=== PATIENT | male | born 1940 | race Caucasian/White ===

== ENCOUNTER 2021-04-15 20:45 | Inpatient (IN) | payer MEDICARE, OTHER ==
[~2021-04-15] VITALS: Ht 188 cm; Wt 108.5 kg
[2021-04-15] MEDS ORDERED: morphine INJ 10 MG/ML 1ML (SYR OR VIAL) IVP PRN (21:15)
[2021-04-15] MEDS ORDERED: HYDROcodone/APAP 5 MG/325 MG (LORTAB) TAB PO PRN (21:15)
[2021-04-15] MEDS ORDERED: LOPERAMIDE 2 MG (IMODIUM) TABLET PO PRN (21:15)
[2021-04-15] MEDS ORDERED: ONDANSETRON 4 MG/2 ML (SDV) Z0FRAN IVP PRN (21:15)
[2021-04-15] MEDS ORDERED: ALPRAZolam 0.25 MG (XANAX) TAB PO PRN (21:15)
[2021-04-15] MEDS ORDERED: MELATONIN 3 MG TABLET PO PRN (21:15)
[2021-04-15] MEDS ORDERED: DOCUSATE SODIUM 100 MG (COLACE) CAP PO PRN (21:15)
[2021-04-15] MEDS ORDERED: ONDANSETRON 4 MG (ZOFRAN) ORAL DISSOLVE TAB PO PRN (21:15)
[2021-04-15] MEDS ORDERED: CALCIUM CARBONATE 500 MG (TUMS) TAB.CHEW PO PRN (21:15)
[2021-04-15] MEDS ORDERED: diphenhydrAMINE 25 MG TAB (BENADRYL) PO PRN (21:15)
[2021-04-15] MEDS ORDERED: ACETAMINOPHEN 500 MG TAB (TYLENOL) PO PRN (21:15)
[2021-04-15 23:46] LABS: BASOPHILS # (AUTO) 0.1 10^3/uL (0.0-0.1); BASOPHILS % (AUTO) 1 % (0-10); EOSINOPHILS % (AUTO) 0 % (0-10); HEMATOCRIT 33 % (40-54); HEMOGLOBIN 10.4 g/dL (13.3-17.7); LYMPHOCYTES # (AUTO) 0.5 10^3/uL (1.0-4.0); LYMPHOCYTES % (AUTO) 5 % (12-44); MEAN CORPUSCULAR HEMOGLOBIN 29 pg (25-34); MEAN CORPUSCULAR HGB CONC 31 g/dL (32-36); MEAN CORPUSCULAR VOLUME 92 fL (80-99); MEAN PLATELET VOLUME 10.6 fL (9.0-12.2); MONOCYTES # (AUTO) 0.4 10^3/uL (0.0-1.0); MONOCYTES % (AUTO) 4 % (0-12); NEUTROPHILS # (AUTO) 9.5 10^3/uL (1.8-7.8); NEUTROPHILS % (AUTO) 90 % (42-75); PLATELET COUNT 194 10^3/uL (130-400); WHITE BLOOD COUNT 10.6 10^3/uL (4.3-11.0)
[2021-04-15 23:50] VITALS: BP 119/61
[2021-04-15 23:53] LABS: ALBUMIN 3.8 GM/DL (3.2-4.5); POTASSIUM 4.2 MMOL/L (3.6-5.0)
[2021-04-15 23:55] LABS: TOTAL PROTEIN 7.6 GM/DL (6.4-8.2)
[2021-04-15 23:57] LABS: BILIRUBIN,TOTAL 0.8 MG/DL (0.1-1.0)
[2021-04-15 23:59] LABS: CREATININE SERUM 1.45 MG/DL (0.60-1.30)
[2021-04-16] VITALS (8 sets, daily range): BP systolic 114–168; BP diastolic 72–113
[2021-04-16] MEDS ORDERED: HYDROcodone/APAP 5 MG/325 MG (LORTAB) TAB PO PRN (00:15)
[2021-04-16 00:25] LABS: ATYPICAL LYMPHOCYTES 1 %; BAND NEUTROPHILS 3 %; LYMPHOCYTES % (MANUAL) 5 %; MONOCYTES % (MANUAL) 4 %; NEUTROPHILS % (MANUAL) 87 %
[2021-04-16] MEDS: NS IV 1000 ML 1,000 ML IV SCH ×2 (00:41→08:30)
[2021-04-16] MEDS: PIPERACILLIN/TAZOBACTAM (BULK) 4.5 GM in NS (IVPB) 100 ML IV SCH ×3 (01:51→18:09)
[2021-04-16 05:02] LABS: BASOPHILS % (AUTO) 0 % (0-10); EOSINOPHILS % (AUTO) 0 % (0-10); HEMATOCRIT 31 % (40-54); HEMOGLOBIN 9.7 g/dL (13.3-17.7); LYMPHOCYTES # (AUTO) 0.6 10^3/uL (1.0-4.0); LYMPHOCYTES % (AUTO) 9 % (12-44); MEAN CORPUSCULAR HEMOGLOBIN 29 pg (25-34); MEAN CORPUSCULAR HGB CONC 31 g/dL (32-36); MEAN CORPUSCULAR VOLUME 92 fL (80-99); MEAN PLATELET VOLUME 10.5 fL (9.0-12.2); MONOCYTES # (AUTO) 0.4 10^3/uL (0.0-1.0); MONOCYTES % (AUTO) 6 % (0-12); NEUTROPHILS # (AUTO) 6.3 10^3/uL (1.8-7.8); NEUTROPHILS % (AUTO) 85 % (42-75); PLATELET COUNT 164 10^3/uL (130-400); WHITE BLOOD COUNT 7.5 10^3/uL (4.3-11.0)
[2021-04-16 05:06] LABS: ALBUMIN 3.4 GM/DL (3.2-4.5); POTASSIUM 4.2 MMOL/L (3.6-5.0)
[2021-04-16 05:07] LABS: CALCIUM 8.6 MG/DL (8.5-10.1)
[2021-04-16 05:09] LABS: TOTAL PROTEIN 6.9 GM/DL (6.4-8.2)
[2021-04-16 05:10] LABS: BILIRUBIN,TOTAL 0.7 MG/DL (0.1-1.0)
[2021-04-16 05:12] LABS: CREATININE SERUM 1.42 MG/DL (0.60-1.30)
[2021-04-16] MEDS: inSUlin ASPART (NovoLOG) 1 UNIT/0.01 ML (CHARGE PER UNIT) SC SCH ×3 (05:40→18:09)
[2021-04-16] MEDS ORDERED: inSUlin ASPART (NovoLOG) 1 UNIT/0.01 ML (CHARGE PER UNIT) SC SCH (06:00)
[2021-04-16] MEDS ORDERED: inSUlin (REGULAR) HUMAN 1 UNIT/0.01 ML (CHARGE PER UNIT) SC ONE ×2 (07:00→08:00)
[2021-04-16] MEDS: polyethylene glycoL POWDER 17 GM (MIRALAX) PACK PO SCH ×2 (08:07→22:57)
[2021-04-16] MEDS: SENNA W/DOCUSATE (SENOKOT S) TABLET PO SCH ×2 (08:07→19:26)
[2021-04-16] MEDS ORDERED: ENOXAPARIN 40 MG/0.4 ML (LOVENOX) SYR SC SCH (09:00)
[2021-04-16] MEDS ORDERED: FUROSEMIDE 40 MG/4 ML INJ (LASIX) IVP ONE (10:15)
--- NOTE | 2021-04-16 10:39 | Consultation - Surgery ---
VALERI TAMEZ 04/16/21 1039: History of Present Illness History of Present Illness Patient Consulted On([place]/time) 04/16/21 10:31 Date Seen by Provider: Apr 16, 2021 Time Seen by Provider: 10:31 History of Present Illness Patient was consulted for Dr. Tran for abdominal pain. Patient is an 80 year old male transferred to the hospital for a UTI, pneumonia, and sepsis. Patient is being seen for reported abdominal pain. Patient has had an indwelling suprapubic catheter for over a year. Patient states his abdominal pain is in the RLQ, describes it as a deep ache. Patient also complains of costovertebral angle pain on the back. Patient rates the pain a 2/10 at rest. Much worse with palpation. Patient states that nothing makes his pain better. Eating certain foods can make it worse, he does not recall which. Patient also states that pressure can make his pain worse. His pain has been constant lately and remains localized to the RLQ and his costovertebral pain on the back. Patient did have a UA positive for bacteria at [facility] and blood cultures are positive for Gram (-) rods. Patient is a type 2 diabetic and is currently hyperglycemic, with an elevated alk phos. Allergies and Home Medications Allergies Coded Allergies: naproxen (Verified Allergy, Unknown, 04/15/21) Home Medications Amlodipine Besylate 10 Mg Tablet, 10 MG PO DAILY, (Reported) Last Action: Reviewed Carvedilol 25 Mg Tablet, 25 MG PO BID, (Reported) Last Action: Reviewed Digoxin 125 Mcg Tablet, 125 MCG PO DAILY, (Reported) Last Action: Reviewed Glimepiride 4 Mg Tablet, 4 MG PO DAILY, (Reported) Last Action: Reviewed Hydrocodone/Acetaminophen 1 Each Tablet, 1 EA PO Q8H PRN for PAIN-MODERATE (5- 7), (Reported) Last Action: Reviewed Insulin Aspart 100 Unit/1 Ml Susp, 8 UNITS SC AC, (Reported) Last Action: Reviewed Losartan Potassium 25 Mg Tablet, 25 MG PO HS, (Reported) Last Action: Reviewed Lovastatin 20 Mg Tablet, 20 MG PO HS, (Reported) Last Action: Reviewed Metformin HCl 500 Mg Tab.er.24h, 500 MG PO DAILY, (Reported) Last Action: Reviewed Potassium Chloride 20 Meq Tab.er.prt, 20 MEQ PO DAILY, (Reported) Last Action: Reviewed Rivaroxaban 20 Mg Tablet, 20 MG PO DAILY, (Reported) Last Action: Reviewed Torsemide 100 Mg Tablet, 50 MG PO DAILY, (Reported) LAST FILLED 12-12-2020 #45/90 DAY SUPPLY TAKES OF A 100MG TAB Last Action: Reviewed Past Arelfbf-Fayvuf-Qhgbiv Hx Patient Social History Smoking Status: Former Smoker Alcohol Use?: No Have you traveled recently?: No Surgeries Surgeries: CABG, Tonsillectomy Respiratory Respiratory Disorders: Pneumonia Cardiovascular Cardiac Disorders: Coronary Artery Disease, Heart Attack Genitourinary Genitourinary Disorders: UTI-Chronic Gastrointestinal Gastrointestinal Disorders: Gastroesophageal Reflux Family Medical History Significant Family History: CAD Over 55 Years Old, Diabetes Review of Systems-General Respiratory: dyspnea on exertion, short of breath Gastrointestinal: RLQ, abdominal pain (RLQ) Genitourinary: pain (to pressure over cath), other (indwelling suprapubic catheter) Musculoskeletal: back pain (subcostal pain R side) Physical Exam-General Problems Physical Exam Vital Signs Vital Signs - First Documented 04/15/21 04/15/21 04/16/21 23:38 23:50 07:55 Pulse 94 Resp 17 B/P (MAP) 119/61 (80) Pulse Ox 97 O2 Delivery Nasal Cannula O2 Flow Rate 4.00 FiO2 96 Capillary Refill : General Appearance: WD/WN, mild distress HEENT: PERRL/EOMI Neck: non-tender, supple Respiratory: respiratory distress, decreased breath sounds, accessory muscle use Cardiovascular: normal peripheral pulses, regular rate, rhythm, extra beats Gastrointestinal: soft, tenderness (RLQ) Back: CVA tenderness (R) Extremities: non-tender, no calf tenderness, pedal edema Neurologic/Psychiatric: alert, depressed affect Skin: normal color, warm/dry Data Review Labs Laboratory Tests 04/15/21 23:37: White Blood Count 10.6, Red Blood Count 3.64L, Hemoglobin 10.4L, Hematocrit 33L, Mean Corpuscular Volume 92, Mean Corpuscular Hemoglobin 29, Mean Corpuscular Hemoglobin Concent 31L, Red Cell Distribution Width 14.4, Platelet Count 194, Mean Platelet Volume 10.6, Immature Granulocyte % (Auto) 0, Neutrophils (%) (Auto) 90H, Lymphocytes (%) (Auto) 5L, Monocytes (%) (Auto) 4, Eosinophils (%) (Auto) 0, Basophils (%) (Auto) 1, Neutrophils # (Auto) 9.5H, Lymphocytes # (Auto) 0.5L, Monocytes # (Auto) 0.4, Eosinophils # (Auto) 0.0, Basophils # (Auto) 0.1, Immature Granulocyte # (Auto) 0.0, Neutrophils % (Manual) 87, Lymphocytes % (Manual) 5, Monocytes % (Manual) 4, Band Neutrophils 3, Atypical Lymphocytes 1, Sodium Level 137, Potassium Level 4.2, Chloride Level 104, Carbon Dioxide Level 20L, Anion Gap 13, Blood Urea Nitrogen 18, Creatinine 1.45H, Estimat Glomerular Filtration Rate 47, BUN/Creatinine Ratio 12, Glucose Level 395H, Lactic Acid Level 2.54*H, Calcium Level 9.0, Corrected Calcium 9.2, Total Bilirubin 0.8, Aspartate Amino Transf (AST/SGOT) 21, Alanine Aminotransferase (ALT/SGPT) 19, Alkaline Phosphatase 231H, Total Protein 7.6, Albumin 3.8 04/16/21 01:40: Lactic Acid Level 1.65 04/16/21 04:50: White Blood Count 7.5, Red Blood Count 3.38L, Hemoglobin 9.7L, Hematocrit 31L, Mean Corpuscular Volume 92, Mean Corpuscular Hemoglobin 29, Mean Corpuscular Hemoglobin Concent 31L, Red Cell Distribution Width 14.4, Platelet Count 164, Mean Platelet Volume 10.5, Immature Granulocyte % (Auto) 0, Neutrophils (%) (Auto) 85H, Lymphocytes (%) (Auto) 9L, Monocytes (%) (Auto) 6, Eosinophils (%) (Auto) 0, Basophils (%) (Auto) 0, Neutrophils # (Auto) 6.3, Lymphocytes # (Auto) 0.6L, Monocytes # (Auto) 0.4, Eosinophils # (Auto) 0.0, Basophils # (Auto) 0.0, Immature Granulocyte # (Auto) 0.0, Sodium Level 135, Potassium Level 4.2, Chloride Level 104, Carbon Dioxide Level 20L, Anion Gap 11, Blood Urea Nitrogen 17, Creatinine 1.42H, Estimat Glomerular Filtration Rate 48, BUN/Creatinine Ratio 12, Glucose Level 405*H, Calcium Level 8.6, Corrected Calcium 9.1, Total Bilirubin 0.7, Aspartate Amino Transf (AST/SGOT) 17, Alanine Aminotransferase (ALT/SGPT) 17, Alkaline Phosphatase 198H, Total Protein 6.9, Albumin 3.4 Assessment/Plan Assessment/Plan Assessment/Plan Assessment: UTI Sepsis Pneumonia Hyperglycemia Plan: IV fluids Continue Zosyn - monitor labs Continue to monitor abdominal pain Continue medical management TAMEKA ESQUIVEL DO 04/16/211936: History of Present Illness History of Present Illness History of Present Illness Patient 80-year-old male with UTI pneumonia and sepsis. Patient having some abdominal pain very minimal in the right lower quadrant. Aching type pain. At rest it is a 2 out of 10. Pain also may be moved up to his right flank. Patient has suprapubic catheter. Patient not the best historian. Patient UA was positive for bacteria which grew out gram-negative rods. Allergies and Home Medications Allergies Coded Allergies: naproxen (Verified Allergy, Unknown, 04/15/21) Home Medications Amlodipine Besylate 10 Mg Tablet, 10 MG PO DAILY, (Reported) Last Action: Reviewed Carvedilol 25 Mg Tablet, 25 MG PO BID, (Reported) Last Action: Reviewed Digoxin 125 Mcg Tablet, 125 MCG PO DAILY, (Reported) Last Action: Reviewed Glimepiride 4 Mg Tablet, 4 MG PO DAILY, (Reported) Last Action: Reviewed Hydrocodone/Acetaminophen 1 Each Tablet, 1 EA PO Q8H PRN for PAIN-MODERATE (5- 7), (Reported) Last Action: Reviewed Insulin Aspart 100 Unit/1 Ml Susp, 8 UNITS SC AC, (Reported) Last Action: Reviewed Losartan Potassium 25 Mg Tablet, 25 MG PO HS, (Reported) Last Action: Reviewed Lovastatin 20 Mg Tablet, 20 MG PO HS, (Reported) Last Action: Reviewed Metformin HCl 500 Mg Tab.er.24h, 500 MG PO DAILY, (Reported) Last Action: Reviewed Potassium Chloride 20 Meq Tab.er.prt, 20 MEQ PO DAILY, (Reported) Last Action: Reviewed Rivaroxaban 20 Mg Tablet, 20 MG PO DAILY, (Reported) Last Action: Reviewed Torsemide 100 Mg Tablet, 50 MG PO DAILY, (Reported) LAST FILLED 12-12-2020 #45/90 DAY SUPPLY TAKES OF A 100MG TAB Last Action: Reviewed Patient Home Medication List Home Medication List Reviewed: Yes Past Jxcggxt-Bequao-Tcqgif Hx Reviewed Nursing Assessment Reviewed/Agree w Nursing PMH: Yes Family Medical History Significant Family History: No Pertinent Family Hx Review of Systems-General Respiratory: dyspnea on exertion, short of breath Gastrointestinal: RLQ, abdominal pain (RLQ); No nausea, No vomiting Genitourinary: pain (to pressure over cath), other (indwelling suprapubic catheter) Musculoskeletal: back pain (subcostal pain R side) Skin: No change in color Psychiatric/Neurological: Denies Anxiety, Denies Depressed, Denies Emotional Problems All Other Systems Reviewed Negative Unless Noted: Yes (Negative excepted noted.) Physical Exam-General Problems Physical Exam General Appearance: WD/WN; No mild distress HEENT: PERRL/EOMI, normal ENT inspection Neck: non-tender, supple Respiratory: chest non-tender, no respiratory distress, no accessory muscle use; No respiratory distress, No accessory muscle use Cardiovascular: normal peripheral pulses, regular rate, rhythm, no JVD Gastrointestinal: soft, tenderness (RLQ minimal with deep palpation, suprapubic catheter in place) Back: CVA tenderness (R) Extremities: non-tender, normal inspection Neurologic/Psychiatric: alert, depressed affect Skin: normal color, warm/dry Lymphatic: no adenopathy Assessment/Plan Assessment/Plan Assessment/Plan UTI Right lower quadrant abdominal pain Sepsis Pneumonia Hyperglycemia Abdominal pain likely related to UTI he has indwelling suprapubic catheter. Patient also by x-ray demonstrated to have some colonic dilated loops however I do not feel this is likely causing his pain IV fluids Continue Zosyn - monitor labs Continue to monitor abdominal pain Continue medical management Supervisory-Addendum Brief Verification & Attestation Participated in pt care: history, MDM, physical Personally performed: exam, history, MDM, supervision of care Care discussed with: Medical Student Procedures: n/a Results interpretation: Verified all documentation Verification and Attestation of Medical Student E/M Service A medical student performed and documented this service in my presence. I reviewed and verified all information documented by the medical student and made modifications to such information, when appropriate. I personally performed the physical exam and medical decision making. Tameka Esquivel, Apr 16, 2021,19:37 VALERI TAMEZ Apr 16, 2021 10:39 TAMEKA ESQUIVEL DO Apr 16, 2021 19:37
[2021-04-16] MEDS: RT-ALBUTEROL/IPRATROPIUM 3 ML (DUONEB) VIAL INH SCH ×4 (10:57→21:18)
[2021-04-16] MEDS ORDERED: RT-ALBUTEROL/IPRATROPIUM 3 ML (DUONEB) VIAL INH PRN (12:00)
--- NOTE | 2021-04-16 12:28 | Consultation-Cardiology ---
HPI-Cardiology Cardiology Consultation Date of Consultation 04/16/21 Date of Admission Time Seen by Provider: 08:00 Indication: Coronary artery disease HPI 80 years old gentleman with history of coronary artery disease, paroxysmal atrial fibrillation, permanent pacemaker. Seen in the emergency room for abdominal pain and cramps, diagnosed with UTI and pneumonia, he was transferred for evaluation and management, he denies any chest pain, no palpitation, no syncope or near syncopal episodes. Follows with Dr. Trent Home Medications & Allergies Allergies: Coded Allergies: naproxen (Verified Allergy, Unknown, 04/15/21) Home Medication List Reviewed: Yes YQB-Uyjgog-Eqbozf Hx Patient Social History Smoking Status: Former Smoker Have you traveled recently?: No Alcohol Use?: No Past Medical History Discussed below Family Medical History Significant Family History: CAD Over 55 Years Old, Diabetes Family Medical Hx Noncontributory Review of Systems-General Review of Systems Constitutional: see HPI, malaise, weakness EENTM: see HPI, no symptoms reported Respiratory: dyspnea on exertion, short of breath Cardiovascular: see HPI Gastrointestinal: RLQ, abdominal pain (RLQ) Genitourinary: pain (to pressure over cath), other (indwelling suprapubic catheter) Musculoskeletal: back pain (subcostal pain R side) Skin: no symptoms reported, see HPI Psychiatric/Neurological: No Symptoms Reported, See HPI Reviewed Test Results Reviewed Test Results Lab Laboratory Tests Test 04/15/21 23:37 04/16/21 01:40 04/16/21 04:50 04/16/21 12:12 Range/Units White Blood Count 10.6 7.5 4.3-11.0 10^3/uL Red Blood Count 3.64 L 3.38 L 4.30-5.52 10^6/uL Hemoglobin 10.4 L 9.7 L 13.3-17.7 g/dL Hematocrit 33 L 31 L 40-54 % Mean Corpuscular Volume 92 92 80-99 fL Mean Corpuscular Hemoglobin 29 29 25-34 pg Mean Corpuscular Hemoglobin Concent 31 L 31 L 32-36 g/dL Red Cell Distribution Width 14.4 14.4 10.0-14.5 % Platelet Count 194 164 130-400 10^3/uL Mean Platelet Volume 10.6 10.5 9.0-12.2 fL Immature Granulocyte % (Auto) 0 0 % Neutrophils (%) (Auto) 90 H 85 H 42-75 % Lymphocytes (%) (Auto) 5 L 9 L 12-44 % Monocytes (%) (Auto) 4 6 0-12 % Eosinophils (%) (Auto) 0 0 0-10 % Basophils (%) (Auto) 1 0 0-10 % Neutrophils # (Auto) 9.5 H 6.3 1.8-7.8 10^3/uL Lymphocytes # (Auto) 0.5 L 0.6 L 1.0-4.0 10^3/uL Monocytes # (Auto) 0.4 0.4 0.0-1.0 10^3/uL Eosinophils # (Auto) 0.0 0.0 0.0-0.3 10^3/uL Basophils # (Auto) 0.1 0.0 0.0-0.1 10^3/uL Immature Granulocyte # (Auto) 0.0 0.0 0.0-0.1 10^3/uL Neutrophils % (Manual) 87 % Lymphocytes % (Manual) 5 % Monocytes % (Manual) 4 % Band Neutrophils 3 % Atypical Lymphocytes 1 % Sodium Level 137 135 135-145 MMOL/L Potassium Level 4.2 4.2 3.6-5.0 MMOL/L Chloride Level 104 104 98-107 MMOL/L Carbon Dioxide Level 20 L 20 L 21-32 MMOL/L Anion Gap 13 11 5-14 MMOL/L Blood Urea Nitrogen 18 17 7-18 MG/DL Creatinine 1.45 H 1.42 H 0.60-1.30 MG/DL Estimat Glomerular Filtration Rate 47 48 BUN/Creatinine Ratio 12 12 Glucose Level 395 H 405 *H 70-105 MG/DL Lactic Acid Level 2.54 *H 1.65 0.50-2.00 MMOL/L Calcium Level 9.0 8.6 8.5-10.1 MG/DL Corrected Calcium 9.2 9.1 8.5-10.1 MG/DL Total Bilirubin 0.8 0.7 0.1-1.0 MG/DL Aspartate Amino Transf (AST/SGOT) 21 17 5-34 U/L Alanine Aminotransferase (ALT/SGPT) 19 17 0-55 U/L Alkaline Phosphatase 231 H 198 H 40-136 U/L Total Protein 7.6 6.9 6.4-8.2 GM/DL Albumin 3.8 3.4 3.2-4.5 GM/DL B-Type Natriuretic Peptide 339.1 H <100.0 PG/ML Glucometer 270 H 70-110 MG/DL Physical Exam Physical Exam Vital Signs Vital Signs - First Documented 04/15/21 04/15/21 04/16/21 23:38 23:50 07:55 Pulse 94 Resp 17 B/P (MAP) 119/61 (80) Pulse Ox 97 O2 Delivery Nasal Cannula O2 Flow Rate 4.00 FiO2 96 Capillary Refill : Height, Weight, BMI Height: '" Weight: lbs. oz. kg; 30.69 BMI Method: General Appearance: No Apparent Distress, WD/WN Eyes: Bilateral Eye Normal Inspection, Bilateral Eye PERRL, Bilateral Eye EOMI HEENT: PERRL/EOMI, TMs Normal, Normal ENT Inspection, Pharynx Normal, Moist Mucous Membranes Neck: Full Range of Motion, Normal Inspection, Non Tender, Supple, Carotid Bruit Respiratory: Chest Non Tender, Normal Breath Sounds, No Accessory Muscle Use, No Respiratory Distress Cardiovascular: No Edema, No Gallop, No JVD, Normal Peripheral Pulses, Systolic Murmur, Irregularly Irregular Gastrointestinal: Normal Bowel Sounds, No Organomegaly, No Pulsatile Mass, Non Tender, Soft Back: Normal Inspection, No CVA Tenderness, No Vertebral Tenderness Extremity: Normal Capillary Refill, Normal Inspection, Normal Range of Motion, Non Tender, No Calf Tenderness Neurologic/Psychiatric: Alert, Oriented x3, No Motor/Sensory Deficits, Normal Mood/Affect Skin: Normal Color, Warm/Dry Lymphatic: No Adenopathy A/P-Cardiology Admission Diagnosis Urinary tract infection Pneumonia Coronary artery disease Hypertension Assessment/Plan Urinary tract infection with indwelling suprapubic catheter, receiving antibiotic, managed by medical team Pneumonia, sepsis, managed by medical team Coronary artery disease, history of CABG, following with Dr. 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 Currently asymptomatic. Continue to monitor Paroxysmal atrial fibrillation, permanent pacemaker, restart home medication monitor blood pressure Hypertension, controlled, monitor blood pressure Hyperlipidemia, monitor lipids EVENS GILMORE MD Apr 16, 2021 12:28
--- NOTE | 2021-04-16 12:45 | History & Physical ---
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 Pt was admitted to OSH 04/15 for severe abdominal pain and new-onset cough. Pt was found to meet 3/4 sepsis criteria (tachycardia, tachypnea and fever) and requiring 4L NC. UA positive for bacteria. Chest Xray consistent with bilateral lower lobe pneumonia. Blood cultures positive for gram negative rods. Abdominal xray wnl. Pt was managed with Rocephin and transferred to [place] [facility] for further management 04/16. Pt continued to be febrile and abdominal pain persistent. Started on zosyn for empiric management Today Mr. Cristina reports feeling cold and persistent abdominal pain which he is unable to characterize. Is unable to recall events leading up to admission. Continues to need supplemental oxygen. Lives with at home, but does not believe will come visit him. Endorses chills, SOB, cough, and abdominal pain. Denies dysuria, hemoptysis, headaches. muscle aches. nausea, vomiting. Date of Admission Apr 15, 2021 at 23:29 Date Seen by a Provider: Apr 16, 2021 Time Seen by a Provider: 09:40 I consulted on this patient on 04/16/21 12:44 Attending Physician Marielena Acevedo DO Admitting Physician No,Local Physician Consult Allergies and Home Medications Allergies Coded Allergies: naproxen (Verified Allergy, Unknown, 04/15/21) Home Medications Amlodipine Besylate 10 Mg Tablet, 10 MG PO DAILY, (Reported) Last Action: Continued Carvedilol 25 Mg Tablet, 25 MG PO BID, (Reported) Last Action: Converted Digoxin 125 Mcg Tablet, 125 MCG PO DAILY, (Reported) Last Action: Continued Glimepiride 4 Mg Tablet, 4 MG PO DAILY, (Reported) Last Action: Continued Hydrocodone/Acetaminophen 1 Each Tablet, 1 EA PO Q8H PRN for PAIN-MODERATE (5- 7), (Reported) Last Action: Continued Insulin Aspart 100 Unit/1 Ml Susp, 8 UNITS SC AC, (Reported) Last Action: Continued Losartan Potassium 25 Mg Tablet, 25 MG PO HS, (Reported) Last Action: Continued Lovastatin 20 Mg Tablet, 20 MG PO HS, (Reported) Last Action: Converted Metformin HCl 500 Mg Tab.er.24h, 500 MG PO DAILY, (Reported) Last Action: Held Potassium Chloride 20 Meq Tab.er.prt, 20 MEQ PO DAILY, (Reported) Last Action: Held Rivaroxaban 20 Mg Tablet, 20 MG PO DAILY, (Reported) Last Action: Continued Torsemide 100 Mg Tablet, 50 MG PO DAILY, (Reported) LAST FILLED 12-12-2020 #45/90 DAY SUPPLY TAKES OF A 100MG TAB Last Action: Converted Past Rgtviri-Lznhyc-Ipcict Hx Patient Social History Marrital Status: Employed/Student: retired Tobacco Use?: No Smoking Status: Former Smoker Smokeless Tobacco Frequency: Never a User Use of E-Cig and/or Vaping dev: No Substance use?: No Alcohol Use?: No Pt feels they are or have been: No Current Status Advance Directives: No Communicates: Verbally Primary Language: Kinyarwanda Preferred Spoken Language: Kinyarwanda Is interpretation needed?: No Sensory deficits: Vision impairment, Hearing impairment Implanted or Applied Medical D: Orthopedic hardware, Pacemaker Past Medical History Surgeries: CABG, Pacemaker, Tonsillectomy Pneumonia Coronary Artery Disease, Heart Attack UTI-Chronic Gastroesophageal Reflux Family Medical History CAD Over 55 Years Old, Diabetes All Other Systems Reviewed Negative Unless Noted: Yes (ROS as noted in HPI) Physical Exam Vital Signs Vital Signs - First Documented 04/15/21 04/15/21 04/16/21 23:38 23:50 07:55 Pulse 94 Resp 17 B/P (MAP) 119/61 (80) Pulse Ox 97 O2 Delivery Nasal Cannula O2 Flow Rate 4.00 FiO2 96 Capillary Refill : Height, Weight, BMI Height: '" Weight: lbs. oz. kg; 30.69 BMI Method: General Appearance: Mild Distress Respiratory: Accessory Muscle Use, Decreased Breath Sounds Cardiovascular: Irregularly Irregular Gastrointestinal: Normal Bowel Sounds, Guarding, Tenderness Extremity: Normal Capillary Refill Neurologic/Psychiatric: Alert, Disoriented Skin: Normal Color, Warm/Dry Assessment/Plan Assessment and Plan Problems: (1) Sepsis Assessment & Plan: -History of frequent UTIs in setting of chronic indwelling catheter. -08/31/2020: Admission for VRE -Admission to OSH 04/15 for diffuse abdominal pain. Admission labs significant for 3/4 SIRS: HR 106, RR 24, T 101.2. Lactic acid 2.7 -Chest xray 04/15: Bibasilar airspace disease, left worse than right, consistent with pneumonia -UA: pos nitrites, 4+ bacteria -1/2 blood cultures positive for Gram neg rods (04/15). -Urine cultures: NGTD Day 1 -Started on Rocephin -Transfer to [place] 04/15. Requiring 4L NC. Lactic acid 2.54. T 101.2. Plan: -Continue Zosyn -Monitor cultures and labs (2) Pneumonia Assessment & Plan: -04/15: Chest xray as noted above - consistent with pna Plan: -Continue sepsis workup -Continue Zosyn (3) Acute respiratory failure with hypoxia Assessment & Plan: -04/16: Admission requiring 4L NC. Baseline is RA. -Likely due to pneumonia (above) and volume overload 2/2 heart failure (below) Plan: -Continue supplementary oxygen as needed -Continue to monitor labs and SpO2. (4) Indwelling Wilson catheter present Assessment & Plan: -H/O frequent UTIs as noted above. UA pos for bacteria. History of VRE Plan: -Continue to use wilson -Continue Sepsis management as above -Consider Outpt wilson follow-up (5) Volume overload Assessment & Plan: -H/O CAD, CABG (2015) and Dual PPM (2015) on carvedilol (25mg), digoxin (125mcg) -PE significant for volume overload. Likely due to acute heart failure exacerbation Plan: -Stop IVF -Start IV lasix 20mg -Monitor Is + Os -Consider Echo or cardiology consult -Hold RABBLER meds (6) Abdominal pain Assessment & Plan: -04/15: Onset of acute abdominal pain. Ab xray at OSH wnl. -04/16: Persistent tenderness to exam. Guarding present. Plan: -Surgery consulted -Continue to follow (7) Afib Assessment & Plan: -04/15: EKG at OSH showing Afib in the setting of sepsis (above). Unclear previous history, but pt is currently taking Xarelto RABBLER Plan: -Continue to monitor -Continue Xarelto (8) Delirium Assessment & Plan: -04/16: A+O x1 (person). Unclear what pt's baseline is. -AMS likely multifactorial: Sepsis, hospital admission, hypoxia, pain Plan: -Continue to follow -Manage comorbid conditions MARIELENA ACEVEDO DO 04/17/21 0610: History of Present Illness History of Present Illness Reason for visit/HPI CC: Altered mental status HPI: This is an 80yoWM clinic pt of Dr. Amezquita who was transferred here from [facility] Renetta HUSAIN had taken care of him at the ER and reported that he had increased confusion diagnosed with a UTI, his Covid-19 test was negative and he was placed on Zosyn after steiner-cultured was reported back to a gram negative rody today but he has suspicion for pneumonia, repeated CXR and will heplock IV fluid.,cardiology consultation and initiate Lasix of 20mg IV x1 now. He does have a pacemaker, has a hx of AF, and home medication will be restarted as soon as possible. Allergies and Home Medications Allergies Coded Allergies: naproxen (Verified Allergy, Unknown, 04/15/21) Home Medications Amlodipine Besylate 10 Mg Tablet, 10 MG PO DAILY, (Reported) Last Action: Continued Carvedilol 25 Mg Tablet, 25 MG PO BID, (Reported) Last Action: Converted Digoxin 125 Mcg Tablet, 125 MCG PO DAILY, (Reported) Last Action: Continued Glimepiride 4 Mg Tablet, 4 MG PO DAILY, (Reported) Last Action: Continued Hydrocodone/Acetaminophen 1 Each Tablet, 1 EA PO Q8H PRN for PAIN-MODERATE (5- 7), (Reported) Last Action: Continued Insulin Aspart 100 Unit/1 Ml Susp, 8 UNITS SC AC, (Reported) Last Action: Continued Losartan Potassium 25 Mg Tablet, 25 MG PO HS, (Reported) Last Action: Continued Lovastatin 20 Mg Tablet, 20 MG PO HS, (Reported) Last Action: Converted Metformin HCl 500 Mg Tab.er.24h, 500 MG PO DAILY, (Reported) Last Action: Held Potassium Chloride 20 Meq Tab.er.prt, 20 MEQ PO DAILY, (Reported) Last Action: Held Rivaroxaban 20 Mg Tablet, 20 MG PO DAILY, (Reported) Last Action: Continued Torsemide 100 Mg Tablet, 50 MG PO DAILY, (Reported) LAST FILLED 12-12-2020 #45/90 DAY SUPPLY TAKES OF A 100MG TAB Last Action: Converted Patient Home Medication List Home Medication List Reviewed: Yes Past Xfhqwfp-Lxicou-Gjnpjj Hx Patient Social History Marrital Status: Employed/Student: retired Smoking Status: Never a Smoker Smokeless Tobacco Frequency: Never a User Past Medical History Surgeries: Pacemaker Chronic Edema/Swelling, Coronary Artery Disease, High Cholesterol, Hypertension Dementia Benign Prostatic Hyperpl, Neurogenic Bladder, UTI-Chronic Gastroesophageal Reflux Review of Systems Constitutional: see HPI, malaise, weakness EENTM: no symptoms reported Respiratory: dyspnea on exertion Cardiovascular: no symptoms reported Gastrointestinal: no symptoms reported Genitourinary: no symptoms reported Musculoskeletal: no symptoms reported Skin: no symptoms reported Psychiatric/Neurological: No Symptoms Reported All Other Systems Reviewed Negative Unless Noted: Yes (ROS as noted in HPI) Physical Exam General Appearance: WD/WN, Anxious, Chronically ill, Mild Distress Eyes: Bilateral Eye Normal Inspection, Bilateral Eye PERRL, Bilateral Eye EOMI HEENT: PERRL/EOMI, Normal ENT Inspection, Pharynx Normal Neck: Full Range of Motion, Normal Inspection, Non Tender, Supple, Carotid Bruit Respiratory: Chest Non Tender, Lungs Clear, No Respiratory Distress, Accessory Muscle Use, Decreased Breath Sounds Cardiovascular: Regular Rate, Rhythm, No Edema, No Gallop, No JVD, No Murmur, Normal Peripheral Pulses Gastrointestinal: Normal Bowel Sounds, No Organomegaly, No Pulsatile Mass, Non Tender, Soft Back: Normal Inspection, No CVA Tenderness, No Vertebral Tenderness Extremity: Normal Capillary Refill, Normal Inspection, Normal Range of Motion, Non Tender, No Calf Tenderness, No Pedal Edema Neurologic/Psychiatric: Alert, Oriented x3, No Motor/Sensory Deficits, Normal Mood/Affect Skin: Normal Color, Warm/Dry Lymphatic: No Adenopathy Assessment/Plan Assessment and Plan Assessment: UTI acute on chronic Neurogenic bladder indwelling catheter maintained for a year and a half Bacteremia gram-negative Volume overload Dyspnea Congestive heart failure CAD Diabetes Chronic kidney disease Dementia Plan: Cardiology evaluation PT and OT Home meds Follow-up on cultures IV antibiotics Admission Diagnosis Admission Status: Inpatient Order (span 2 midnights) Reason for Inpatient Admission: uti bactremia Supervisory-Addendum Brief Verification & Attestation Participated in pt care: history, MDM, physical Personally performed: exam, history, MDM, supervision of care Care discussed with: Medical Student Procedures: n/a Results interpretation: Verified all documentation Verification and Attestation of Medical Student E/M Service A medical student performed and documented this service in my presence. I reviewed and verified all information documented by the medical student and made modifications to such information, when appropriate. I personally performed the physical exam and medical decision making. Marielena Acevedo, Apr 17, 2021,06:10 KATY JEAN Apr 16, 2021 12:44 MARIELENA ACEVEDO DO Apr 17, 2021 06:10
[2021-04-16] MEDS ORDERED: TORS100T4 PO (13:13)
[2021-04-16] MEDS ORDERED: POTA20TA15 PO (13:13)
[2021-04-16] MEDS ORDERED: CARV25TA PO (13:13)
[2021-04-16] MEDS ORDERED: LOSA25TA41 PO (13:13)
[2021-04-16] MEDS ORDERED: LOVA20TA2 PO (13:13)
[2021-04-16] MEDS ORDERED: GLIM4TAB5 PO (13:13)
[2021-04-16] MEDS ORDERED: DIGO125T3 PO (13:13)
[2021-04-16] MEDS ORDERED: RIVA20TA PO (13:13)
[2021-04-16] MEDS ORDERED: INSU100V16 SC (13:13)
[2021-04-16] MEDS ORDERED: METF-865 PO (13:13)
[2021-04-16] MEDS ORDERED: HYDR-3820 PO (13:13)
[2021-04-16] MEDS ORDERED: AMLO-251 PO (13:13)
--- NOTE | 2021-04-16 14:23 | Physical Therapy Evaluation ---
PT Evaluation-General Medical Diagnosis Admission Date Apr 15, 2021 at 23:29 Medical Diagnosis: UTI/pneumonia/sepsis Onset Date: Apr 15, 2021 Therapy Diagnosis Therapy Diagnosis: generalized weakness/debility Precautions Precautions/Isolations: Fall Prevention, Standard Precautions Referral Physician: Marc Reason for Referral: Evaluation/Treatment Medical History Pertinent Medical History: CABG, DM Additional Medical History indwelling suprapubic catheter Current History Direct admit due to UTI/sepsis/pneumonia Reviewed History: Yes Social History Home: Single Level Current Living Status: Spouse Entry Into Home: Level Entry Prior Prior Level of Function SCALE: Activities may be completed with or without assistive devices. 8-Fruuykwjre-ctikxmx completes the activity by him/herself with no assistance from a helper. 5-Set-up or Clean-up Assistance-helper sets up or cleans up; patient completes activity. [place] assists only prior to or following the activity. 4-Supervision or Touching Assistance-helper provides verbal cues and/or touching/steadying and/or contact guard assistance as patient completes activity. Assistance may be provided throughout the activity or intermittently. 3-Partial/Moderate Assistance-helper does LESS THAN HALF the effort. [place] lifts, holds or supports trunk or limbs, but provides less than half the effort. 2-Substantial/Maximal Assistance-helper does MORE THAN HALF the effort. [place] lifts or holds trunk or limbs and provides more than half the effort. 8-Cujplokmc-jrwhis does ALL the effort. Patient does none of the effort to complete the activity. Or, the assistance of 2 or more helpers is required for the patient to complete the activity. If activity was not attempted, code reason: 7-Patient Refused. 9-Not Applicable-not attempted and the patient did not perform the activity before the current illness, exacerbation or injury. 10-Not Attempted due to Environmental Limitations-(lack of equipment, weather restraints, etc.). 88-Not Attempted due to Medical Conditions or Safety Concerns. Bed Mobility: 6 Transfers (B,C,W/C): 6 Gait: 6 Stairs: 9 Indoor Mobility (Ambulation): Independent Stairs: Not [place] Prior Devices Use: Walker PT Evaluation-Current Subjective Patient agrees to PT. Objective Patient Orientation: Person, Time, Situation Attachments: Oxygen, Suprapubic Catheter, IV ROM/Strength ROM Lower Extremities bilateral LE WFL Strength Lower Extremities 3/5 grossly bilateral LE all planes Integumentary/Posture Integumentary refer to nursing notes Posture trunk and bilateral knee flexed posture in stand Neuromuscular (Tone, Coordination, Reflexes) grossly intact Sensory Vision: Functional Hearing: Impaired Transfers Roll Left to Right (QC): 2 Sit to Lying (QC): 2 Lying to Sitting/Side of Bed(Q: 2 Sit to Stand (QC): 3 Chair/Xhs-sc-Ptvbs Xfer(QC): 3 Toilet Transfer (QC): 88 Car Transfer (QC): 88 Gait Does the Patient Walk?: Yes Mode of Locomotion: Walk Anticipated Mode of Locomotion: Walk Walk 10 feet (QC): 3 Walk 50 ft with 2 Turns(QC): 88 Walk 150 ft (QC): 88 Distance: 10' Gait Assistive Device: FWW Comments/Gait Description shuffle gait sequence Balance Sitting Static: Normal Sitting Dynamic: Normal Standing Static: Fair Standing Dynamic: Fair Assessment/Needs 80 y.o. male, will benefit from skilled PT to address functional strength and mobility to improve current LOF to safely return to home or care facility at maximum LOF. Rehab Potential: Fair PT Mcfp Goals Distillery Manager Goals PT Mcfp Goals Time Frame: Apr 27, 2021 Roll Left & Right (QC): 4 Sit to Lying (QC): 4 Lying-Sitting on Side/Bed(QC): 4 Sit to Stand (QC): 4 Chair/Hyk-wx-Uqdrp Xfer(QC): 4 Toilet Transfer (QC): 4 Walk 10 feet (QC): 4 Walk 50ft with 2 Turns (QC): 4 PT Plan Problem List Problem List: Activity Tolerance, Functional Strength, Safety, Balance, Gait, Transfer, Bed Mobility Treatment/Plan Treatment Plan: Continue Plan of Care Treatment Plan: Bed Mobility, Education, Functional Activity Velasquez, Functional Strength, Gait, Safety, Therapeutic Exercise, Transfers Treatment Duration: Apr 27, 2021 Frequency: 6 times per week Estimated Hrs Per Day: .25 hour per day Patient and/or Family Agrees t: Yes Time/GCodes Time In: 1313 Time Out: 1330 Total Billed Treatment Time: 17 Total Billed Treatment 1 visit EVModC 17 min RACHEL CORNELIUS PT Apr 16, 2021 14:23
--- NOTE | 2021-04-16 15:26 | Occupational Therapy Eval ---
OT Evaluation-General/PLF Medical Diagnosis Admission Date Apr 15, 2021 at 23:29 Medical Diagnosis: UTI/pneumonia/sepsis Onset Date: Apr 15, 2021 Therapy Diagnosis Therapy Diagnosis: Impaired ADLs, debility Precautions Precautions/Isolations: Fall Prevention, Standard Precautions Referral Physician: Marc Amador Reason: Evaluation/Treatment Medical History Pertinent Medical History: CABG, CAD, DM Reviewed History: Yes Social History Home: Single Level Current Living Status: Spouse Entry Into Home: Stairs With Railing Pt a direct admit from OSH due to UTI, sepsis and pneumonia. He reports living in single level home with spouse. States "a few" stairs to enter home. He reports indep with ADLs, performs all IADLs. Per chart, pt with indwelling suprapubic catheter for over a year, yet pt denies this. He reports owning a walker and a cane, yet unable to clarify which he uses more frequently. No family present to verify accuracy of responses. He has a walk in shower and a shower chair. ADL-Prior Level of Function SCALE: Activities may be completed with or without assistive devices. 8-Sauxfcdrxi-skianoi completes the activity by him/herself with no assistance from a helper. 5-Set-up or Clean-up Assistance-helper sets up or cleans up; patient completes activity. [place] assists only prior to or following the activity. 4-Supervision or Touching Assistance-helper provides verbal cues and/or touching/steadying and/or contact guard assistance as patient completes activity. Assistance may be provided throughout the activity or intermittently. 3-Partial/Moderate Assistance-helper does LESS THAN HALF the effort. [place] lifts, holds or supports trunk or limbs, but provides less than half the effort. 2-Substantial/Maximal Assistance-helper does MORE THAN HALF the effort. [place] lifts or holds trunk or limbs and provides more than half the effort. 5-Rgbrqqvme-odqugp does ALL the effort. Patient does none of the effort to complete the activity. Or, the assistance of 2 or more helpers is required for the patient to complete the activity. If activity was not attempted, code reason: 7-Patient Refused. 9-Not Applicable-not attempted and the patient did not perform the activity before the current illness, exacerbation or injury. 10-Not Attempted due to Environmental Limitations-(lack of equipment, weather restraints, etc.). 88-Not Attempted due to Medical Conditions or Safety Concerns. Self Care: Independent Functional Cognition: Unknown DME/Equipment: Bath Chair Drive Self: Yes OT Current Status Subjective Pt denies any pain. Reports only being "cold." Warm blanket provided at end of assessment. Mental Status/Objective Patient Orientation: Person appears to be poor historian. no family present to verify responses. Pt alert and oriented to name and place. Unable to correctly identify name of hospital. Attachments: Ta Catheter, IV, Oxygen Current Glasses/Contacts: No Hand Dominance: Right Upper Extremity ROM WFL Upper Extremity Strength 4/5 throughout Edema: BLE's ADL-Treatment Lower Body Dressing (QC): 3 (Min) On/Off Footwear (QC): 3 (Min) Pt sitting in chair at OT arrival. Agreeable to eval. Extra effort to don/doff ole socks with use of cross over method. Min a needed secondary to impaired flexibility, LE edema, and SOA. Pt desat to 87% with exertion. Recovers quickly with short rest break. Steadying assist with walker once in standing. Anticipate Min a needed to don LB clothing at this time due to reasons noted prior. Education OT Patient Education: Correct positioning, Energy conservation, Modified ADL techniques, Progress toward Goal/Update tx plan, Purpose of tx/functional activities, Rehab process, Safety issues, Transfer techniques Teaching Recipient: Patient Teaching Methods: Demonstration, Discussion Response to Teaching: Verbalize Understanding, Return Demonstration, Reinforcement Needed OT Short Term Goals Short Term Goals Oral hygiene: 5 Toileting hygiene: 4 Shower/bathe self: 3 Upper body dressin Lower body dressin Putting on/taking off footwear: 4 OT Inside Phone Sales Goals Inside Phone Sales Goals Toileting Hygiene (QC): 4 Shower/Bathe Self (QC): 4 Upper Body Dressing (QC): 5 Lower Body Dressing (QC): 4 On/Off Footwear (QC): 5 1=Demonstrate adherence to instructed precautions during ADL tasks. 2=Patient will verbalize/demonstrate understanding of assistive devices/modifications for ADL. 3=Patient will improve strength/tolerance for activity to enable patient to perform ADL's. OT Education/Plan Problem List/Assessment Assessment: Decreased Activ Tolerance, Decreased Safety Aware, Edema, Impaired Cognition, Impaired Funct Balance, Impaired Self-Care Skills Discharge Recommendations Plan/Recommendations: Continue POC Treatment Plan/Plan of Care Treatment,Training & Education: Yes Patient would benefit from OT for education, treatment and training to promote independence in ADL's, mobility, safety and/or upper extremity function for ADL's. Plan of Care: ADL Retraining, Functional Mobility, UE Funct Exercise/Act Treatment Duration: Apr 22, 2021 Frequency: 5 times per week Estimated Hrs Per Day: .25 hour per day Rehab Potential: Fair Time/GCodes Start Time: 15:06 Stop Time: 15:18 Total Time Billed (hr/min): 12 Billed Treatment Time 1 Miri Adams OT Apr 16, 2021 15:26
--- NOTE | 2021-04-16 15:36 | Diagnostic Imaging Report ---
INDICATION: Pneumonia and urinary tract infection. TIME OF EXAM: 2:34 PM. COMPARISON: No prior studies are available for comparison. FINDINGS: Changes of median sternotomy are noted. A cardiac pacer is in place. There is some pleural fluid in the left base. The lungs appear to be fairly clear. No pneumothorax is seen. No free air is identified. There is some gaseous distention involving bowel loops in the left upper quadrant, likely portions of the transverse colon and splenic flexure. No significant small bowel distention is identified. No other abnormality is identified. IMPRESSION: 1. Left basilar effusion. 2. There is moderate gaseous distention of bowel loops in the upper abdomen which appear to be colonic. This could be owing to a colonic ileus. Continued progress films could be obtained. Dictated by: Dictated on workstation # [id number]
[2021-04-17] VITALS (8 sets, daily range): BP systolic 131–159; BP diastolic 56–72
[2021-04-17] MEDS: inSUlin ASPART (NovoLOG) 1 UNIT/0.01 ML (CHARGE PER UNIT) SC SCH ×8 (00:30→23:52)
[2021-04-17] MEDS: PIPERACILLIN/TAZOBACTAM (BULK) 4.5 GM in NS (IVPB) 100 ML IV SCH ×3 (01:58→17:05)
[2021-04-17] MEDS: RT-ALBUTEROL/IPRATROPIUM 3 ML (DUONEB) VIAL INH SCH ×6 (02:33→22:17)
[2021-04-17 06:42] LABS: BASOPHILS # (AUTO) 0.1 10^3/uL (0.0-0.1); BASOPHILS % (AUTO) 1 % (0-10); EOSINOPHILS # (AUTO) 0.1 10^3/uL (0.0-0.3); EOSINOPHILS % (AUTO) 1 % (0-10); HEMATOCRIT 30 % (40-54); HEMOGLOBIN 9.5 g/dL (13.3-17.7); LYMPHOCYTES # (AUTO) 0.9 10^3/uL (1.0-4.0); LYMPHOCYTES % (AUTO) 11 % (12-44); MEAN CORPUSCULAR HEMOGLOBIN 29 pg (25-34); MEAN CORPUSCULAR HGB CONC 31 g/dL (32-36); MEAN CORPUSCULAR VOLUME 92 fL (80-99); MEAN PLATELET VOLUME 10.2 fL (9.0-12.2); MONOCYTES # (AUTO) 0.7 10^3/uL (0.0-1.0); MONOCYTES % (AUTO) 9 % (0-12); NEUTROPHILS # (AUTO) 6.2 10^3/uL (1.8-7.8); NEUTROPHILS % (AUTO) 78 % (42-75); PLATELET COUNT 186 10^3/uL (130-400)
[2021-04-17 06:54] LABS: ALBUMIN 3.3 GM/DL (3.2-4.5); POTASSIUM 3.7 MMOL/L (3.6-5.0)
[2021-04-17 06:55] LABS: CALCIUM 8.5 MG/DL (8.5-10.1)
[2021-04-17 06:56] LABS: TOTAL PROTEIN 6.8 GM/DL (6.4-8.2)
--- NOTE | 2021-04-17 06:57 | Progress Note - Surgery ---
GIAN GARNER 04/17/21 0657: Subjective Date Seen by a Provider: Apr 17, 2021 Time Seen by a Provider: 05:00 Subjective/Events-last exam Pt complains of cough, SOB, headache, and chest pain. Denies any fever, chills, vomiting, diarrhea, or nausea. Last bowel 2 days ago with no blood. No hematuria. Abdominal soft still distended and slight tenderness in RLQ. Review of Systems General: No Chills, No Fatigue; Appetite HEENT: No Head Aches, No Visual Changes, No Sore Throat Pulmonary: Dyspnea, Cough Cardiovascular: Chest Pain; No: Palpitations, Edema Gastrointestinal: No: Nausea, Vomiting, Diarrhea Genitourinary: No Dysuria, No Frequency, No Incontinence Musculoskeletal: No: neck pain, back pain, foot pain Neurological: No: Weakness, Numbness, Confusion Focused Exam Lactate Level 04/15/21 23:37: Lactic Acid Level 2.54*H 04/16/21 01:40: Lactic Acid Level 1.65 Objective Exam Vital Signs Date Time Temp Pulse Resp B/P (MAP) Pulse Ox O2 Delivery O2 Flow Rate FiO2 04/17/21 05:17 88 Nasal Cannula 4.00 04/17/21 04:00 36.8 79 21 146/61 (89) 92 Nasal Cannula 4.00 04/17/21 02:34 92 Nasal Cannula 4.00 04/17/21 01:01 67 04/17/21 00:00 37.2 78 20 133/72 (92) 94 Nasal Cannula 4.00 04/16/21 21:18 96 Nasal Cannula 4.00 04/16/21 21:00 Nasal Cannula 4.00 96 04/16/21 20:00 38.0 86 30 168/113 (131) 92 Nasal Cannula 4.00 04/16/21 19:00 87 04/16/21 18:22 91 Nasal Cannula 4.00 04/16/21 16:00 36.7 79 20 167/72 (103) 96 Nasal Cannula 4.00 04/16/21 14:59 95 Nasal Cannula 4.00 04/16/21 13:43 89 04/16/21 12:05 37.2 89 20 117/105 (109) 94 Nasal Cannula 4.00 04/16/21 10:57 93 Nasal Cannula 4.00 04/16/21 08:05 36.2 74 98 36 8/31/21 07:59 36.2 74 16 127/90 (102) 98 Nasal Cannula 4.00 04/16/21 07:55 Nasal Cannula 4.00 96 I & O 04/17/21 07:00 Intake Total 920 ml Output Total 2185 ml Balance -1265 ml Capillary Refill : General Appearance: WD/WN, Anxious, Chronically ill, Mild Distress HEENT: PERRL/EOMI, Normal ENT Inspection Neck: Full Range of Motion, Normal Inspection, Non Tender, Supple Respiratory: Chest Non Tender, Lungs Clear, No Respiratory Distress, Accessory Muscle Use, Decreased Breath Sounds Cardiovascular: Regular Rate, Rhythm, No Edema, No Gallop, No Murmur Gastrointestinal: soft, tenderness (RLQ minimal with deep palpation, suprapubic catheter in place) Extremity: Normal Inspection, Normal Range of Motion, Non Tender, No Calf Tenderness Neurologic/Psychiatric: Alert, Oriented x3, No Motor/Sensory Deficits, Normal Mood/Affect Skin: Normal Color, Warm/Dry Results Lab Laboratory Tests 04/16/21 12:12: Glucometer 270H 04/16/21 15:29: Glucometer 194H 04/16/21 20:39: Glucometer 181H 04/17/21 00:27: Glucometer 196H 04/17/21 06:33: White Blood Count 8.0, Red Blood Count 3.32L, Hemoglobin 9.5L, Hematocrit 30L, Mean Corpuscular Volume 92, Mean Corpuscular Hemoglobin 29, Mean Corpuscular Hemoglobin Concent 31L, Red Cell Distribution Width 14.7H, Platelet Count 186, M perlita Platelet Volume 10.2, Immature Granulocyte % (Auto) 0, Neutrophils (%) (Auto) 78H, Lymphocytes (%) (Auto) 11L, Monocytes (%) (Auto) 9, Eosinophils (%) (Auto) 1, Basophils (%) (Auto) 1, Neutrophils # (Auto) 6.2, Lymphocytes # (Auto) 0.9L, Monocytes # (Auto) 0.7, Eosinophils # (Auto) 0.1, Basophils # (Auto) 0.1, Immature Granulocyte # (Auto) 0.0 Assessment/Plan Assessment/Plan Assessment/Plan UTI Right lower quadrant abdominal pain Sepsis Pneumonia Hyperglycemia Abdominal pain likely related to UTI he has indwelling suprapubic catheter. Patient also by x-ray demonstrated to have some colonic dilated loops however I do not feel this is likely causing his pain IV fluids Continue Zosyn - monitor labs Continue to monitor abdominal pain Continue medical management TAMEKA ESQUIVEL DO 04/17/212144: Subjective Subjective/Events-last exam Patient feeling little bit better today. He sitting in chair. He states that he is not really having any abdominal pain except for very minimal right lower quadrant. No radiation. Patient is passing flatus no bowel movement today. Denies nausea vomiting fever sweats chills or chest pain. Objective Exam General Appearance: No Apparent Distress, Chronically ill HEENT: PERRL/EOMI Neck: Normal Inspection, Non Tender, Supple Respiratory: Chest Non Tender, No Accessory Muscle Use, No Respiratory Distress Cardiovascular: Regular Rate, Rhythm, No JVD Gastrointestinal: soft, distended (Minimal distention), tenderness (RLQ minimal with deep palpation, suprapubic catheter in place) Extremity: Normal Range of Motion, Non Tender Neurologic/Psychiatric: Alert, Oriented x3, No Motor/Sensory Deficits, Normal Mood/Affect Skin: Normal Color, Warm/Dry Lymphatic: No Adenopathy Assessment/Plan Assessment/Plan Assessment/Plan UTI Right lower quadrant abdominal pain Sepsis Pneumonia Hyperglycemia Abdominal pain likely related to UTI he has indwelling suprapubic catheter. Patient also by x-ray demonstrated to have some colonic dilated loops however I do not feel this is likely causing his pain having flatus IV fluids Continue Zosyn - monitor labs Continue to monitor abdominal pain Continue medical management Supervisory-Addendum Brief Verification & Attestation Participated in pt care: history, MDM, physical Personally performed: exam, history, MDM, supervision of care Care discussed with: Medical Student Procedures: n/a Results interpretation: Verified all documentation Verification and Attestation of Medical Student E/M Service A medical student performed and documented this service in my presence. I reviewed and verified all information documented by the medical student and made modifications to such information, when appropriate. I personally performed the physical exam and medical decision making. Tameka Esquivel, Apr 17, 2021,21:45 GIAN GARNER Apr 17, 2021 06:57 TAMEKA ESQUIVEL DO Apr 17, 2021 21:45
[2021-04-17 06:58] LABS: BILIRUBIN,TOTAL 0.9 MG/DL (0.1-1.0)
[2021-04-17 07:00] LABS: CREATININE SERUM 1.25 MG/DL (0.60-1.30)
[2021-04-17] MEDS: amLODIPine 10 MG (NORVASC) TAB PO SCH (08:51)
[2021-04-17] MEDS: GLIMEPIRIDE 4 MG (AMARYL) TAB PO SCH (08:51)
[2021-04-17] MEDS: TORSEMIDE 20 MG (DEMADEX) TAB PO SCH (08:51)
[2021-04-17] MEDS: RIVAROXABAN 20 MG TABLET (XARELTO) PO SCH (08:51)
[2021-04-17] MEDS: DIGOXIN 0.125 MG (LANOXIN) TAB PO SCH (08:52)
[2021-04-17] MEDS: SENNA W/DOCUSATE (SENOKOT S) TABLET PO SCH ×2 (08:52→21:29)
[2021-04-17] MEDS: polyethylene glycoL POWDER 17 GM (MIRALAX) PACK PO SCH ×2 (08:52→21:29)
--- NOTE | 2021-04-17 10:39 | Cardiology Progress Note ---
Subjective Date Seen by Provider: Apr 17, 2021 Time Seen by Provider: 10:37 Subjective/Events-last exam Patient is laying down in bed, seen while eating breakfast, still having lower abdominal pain. No chest pain Review of Systems General: No Chills, No Night Sweats; Fatigue; No Malaise, No Appetite, No Other HEENT: No Head Aches, No Visual Changes, No Eye Pain, No Ear Pain, No Dysphasia, No Sinus Congestion, No Post Nasal Drip, No Sore Throat, No Other Pulmonary: Dyspnea; No Cough, No Pleuritic Chest Pain, No Other Cardiovascular: No: Chest Pain, Palpitations, Orthopnea, Paroxysmal Noc. Dyspnea, Edema, Lt Headedness, Other Focused Exam Lactate Level 04/15/21 23:37: Lactic Acid Level 2.54*H 04/16/21 01:40: Lactic Acid Level 1.65 Objective-Cardiology Exam Last Set of Vital Signs Vital Signs 04/17/21 04/17/21 04/17/21 07:41 07:45 10:27 Temp 36.7 Pulse 80 Resp 18 B/P (MAP) 153/66 (95) Pulse Ox 94 O2 Delivery Nasal Cannula O2 Flow Rate 3.00 FiO2 96 I&O Intake and Output 04/17/21 00:00 Intake Total 1720 ml Output Total 2375 ml Balance -655 ml Intake Oral 1720 ml Output Urine Total 2375 ml # Bowel Movements 1 Daily Weight Change Unsure General: Alert, Oriented X3, Cooperative HEENT: Atraumatic, PERRLA Neck: Supple, No JVD, No Thyromegaly Lungs: Clear to Auscultation, Normal Air Movement Heart: Regular Rate, Normal S1, Normal S2, Other (Systolic murmur at the left sternal border) Abdomen: Normal Bowel Sounds, Soft, No Tenderness, No Hepatosplenomegaly, No Masses Extremities: No Clubbing, No Cyanosis, No Edema, Normal Pulses, No Tenderness/Swelling Skin: No Rashes, No Breakdown, No Significant Lesion Neuro: Normal Speech, Normal Tone, Sensation Intact Psych/Mental Status: Mood NL, Other (Slightly confused) Results Lab Laboratory Tests 04/17/21 06:33 A/P-Cardiology Admission Diagnosis Urinary tract infection Pneumonia Coronary artery disease Hypertension Assessment/Plan Urinary tract infection with indwelling suprapubic catheter, receiving antibiotic, managed by medical team Pneumonia, sepsis, managed by medical team Coronary artery disease, history of CABG, following with Dr. 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 Currently asymptomatic. Continue to monitor Paroxysmal atrial fibrillation, permanent pacemaker, continue on current medications and monitor Hypertension, controlled, monitor blood pressure Hyperlipidemia, monitor lipids EVENS GILMORE MD Apr 17, 2021 10:39
--- NOTE | 2021-04-17 13:04 | Physical Therapy Daily Note ---
PT Daily Note-Current Subjective Pt in bed upon arrival and agrees to tx. Pt doesn't c/o pain. Mental Status Patient Orientation: Person, Place, Time, Situation Transfers SCALE: Activities may be completed with or without assistive devices. 7-Vfhtqzxpff-muyilbm completes the activity by him/herself with no assistance from a helper. 5-Set-up or Clean-up Assistance-helper sets up or cleans up; patient completes activity. [place] assists only prior to or following the activity. 4-Supervision or Touching Assistance-helper provides verbal cues and/or touching/steadying and/or contact guard assistance as patient completes activity. Assistance may be provided throughout the activity or intermittently. 3-Partial/Moderate Assistance-helper does LESS THAN HALF the effort. [place] lif ts, holds or supports trunk or limbs, but provides less than half the effort. 2-Substantial/Maximal Assistance-helper does MORE THAN HALF the effort. [place] lifts or holds trunk or limbs and provides more than half the effort. 3-Qegiyhayj-bxqvkp does ALL the effort. Patient does none of the effort to complete the activity. Or, the assistance of 2 or more helpers is required for the patient to complete the activity. If activity was not attempted, code reason: 7-Patient Refused. 9-Not Applicable-not attempted and the patient did not perform the activity before the current illness, exacerbation or injury. 10-Not Attempted due to Environmental Limitations-(lack of equipment, weather restraints, etc.). 88-Not Attempted due to Medical Conditions or Safety Concerns. Roll Left & Right (QC): 4 Lying to Sitting/Side of Bed(Q: 4 Sit to Stand (QC): 4 Pt required CGA for all bed mobility and sit to stand. Pt able to sit EOB from supine w/ use of bed rail. Gait Training Does the Patient Walk?: Yes Distance: 15' Walk 10 feet (QC): 4 Gait Persons Needed: 1 Gait Assistive Device: FWW Pt required CGA for amb w/ FWW. Pt amb around bed to other side of room, and back to bed. Treatments Pt performs bed mobility followed by amb. Pt returns to bed post amb d/t slight bleeding at suprapubic catheter, RN notified and enters room. RN addresses pt. Pt left in bed w/ RN in room, all needs met call light in hand. Assessment Current Status: Good Progress Pt exhibits slight weakness. PT Gas Generator Operator Goals Gas Generator Operator Goals PT Prison Goals Time Frame: Apr 27, 2021 Roll Left & Right (QC): 4 Sit to Lying (QC): 4 Lying-Sitting on Side/Bed(QC): 4 Sit to Stand (QC): 4 Chair/Oex-sh-Qmkhb Xfer(QC): 4 Toilet Transfer (QC): 4 Walk 10 feet (QC): 4 Walk 50ft with 2 Turns (QC): 4 PT Plan Problem List Problem List: Activity Tolerance Treatment/Plan Treatment Plan: Continue Plan of Care Treatment Plan: Bed Mobility, Education, Functional Activity Velasquez, Functional Strength, Gait, Safety, Therapeutic Exercise, Transfers Treatment Duration: Apr 27, 2021 Frequency: 6 times per week Estimated Hrs Per Day: .25 hour per day Patient and/or Family Agrees t: Yes Time/GCodes Time In: 1150 Time Out: 1205 Total Billed Treatment Time: 15 Total Billed Treatment BECKY Urias SYDNEY PTA Apr 17, 2021 13:04
--- NOTE | 2021-04-17 13:08 | Progress Note ---
KATY JEAN 04/17/21 1308: Subjective Date Seen by a Provider: Apr 17, 2021 Time Seen by a Provider: 09:45 Subjective/Events-last exam Today Mr. Cristina reports feeling better. Reports decreased work of breathing, increased appetite, and less confusion. Abdominal pain has improved. Still requ ires 4L NC. Denies fevers, chills, SOB. Endorses cough, SOB, and constipation. Denies chest pain, palpitations Focused Exam Lactate Level 04/15/21 23:37: Lactic Acid Level 2.54*H 04/16/21 01:40: Lactic Acid Level 1.65 Objective Exam Last Set of Vital Signs Vital Signs Date Time Temp Pulse Resp B/P (MAP) Pulse Ox O2 Delivery O2 Flow Rate FiO2 04/17/21 11:53 36.6 61 21 131/56 (81) 95 Nasal Cannula 4.00 04/17/21 07:45 96 Capillary Refill : I&O Intake and Output 04/17/21 00:00 Intake Total 1720 ml Output Total 2375 ml Balance -655 ml Intake Oral 1720 ml Output Urine Total 2375 ml # Bowel Movements 1 Daily Weight Change Unsure General: Alert (A+O x1), No Acute Distress Lungs: Other (Decreased work of breathing. Rales heard in bilateral lower lobes. ) Heart: Regular Rate Abdomen: Normal Bowel Sounds Extremities: Normal Pulses, Other (Trace edema) Results Lab Laboratory Tests 04/16/21 15:29: Glucometer 194H 04/16/21 20:39: Glucometer 181H 04/17/21 00:27: Glucometer 196H 04/17/21 06:33: White Blood Count 8.0, Red Blood Count 3.32L, Hemoglobin 9.5L, Hematocrit 30L, Mean Corpuscular Volume 92, Mean Corpuscular Hemoglobin 29, Mean Corpuscular Hemoglobin Concent 31L, Red Cell Distribution Width 14.7H, Platelet Count 186, Mean Platelet Volume 10.2, Immature Granulocyte % (Auto) 0, Neutrophils (%) (Auto) 78H, Lymphocytes (%) (Auto) 11L, Monocytes (%) (Auto) 9, Eosinophils (%) (Auto) 1, Basophils (%) (Auto) 1, Neutrophils # (Auto) 6.2, Lymphocytes # (Auto) 0.9L, Monocytes # (Auto) 0.7, Eosinophils # (Auto) 0.1, Basophils # (Auto) 0.1, Immature Granulocyte # (Auto) 0.0, Sodium Level 137, Potassium Level 3.7, Chloride Level 104, Carbon Dioxide Level 20L, Anion Gap 13, Blood Urea Nitrogen 14, Creatinine 1.25, Estimat Glomerular Filtration Rate 55, BUN/Creatinine Ratio 11, Glucose Level 248H, Calcium Level 8.5, Corrected Calcium 9.1, Total Bilirubin 0.9, Aspartate Amino Transf (AST/SGOT) 17, Alanine Aminotransferase (ALT/SGPT) 17, Alkaline Phosphatase 164H, Total Protein 6.8, Albumin 3.3 04/17/21 10:24: Glucometer 285H Assessment/Plan Assessment/Plan Assess & Plan/Chief Complaint Nicholas Cristina is an 80yo male w/ PMH significant for MH sf frequent UTI with chronic indwelling catheter, 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 Blood and urine cultures from 04/15 at OSH showing GNR. Plan is the following -Continue Zosyn (Day 2) -Monitor blood and urine cultures for species/susceptibilities -Continue to monitor abdominal pain for possible ileus. -Cardiology consulted for volume status: no changes indicated Diagnosis/Problems Diagnosis/Problems (1) Sepsis Assessment & Plan: -History of frequent UTIs in setting of chronic indwelling catheter. -08/31/2020: Admission for VRE -Admission to OSH 04/15 for diffuse abdominal pain. Admission labs significant for 3/4 SIRS: HR 106, RR 24, T 101.2. Lactic acid 2.7 -Chest xray 04/15: Bibasilar airspace disease, left worse than right, consistent with pneumonia -UA: pos nitrites, 4+ bacteria -1/2 blood cultures positive for Gram neg rods (04/15). -Urine cultures: NGTD Day 1 -Started on Rocephin -Transfer to [facility] 04/15. Requiring 4L NC. Lactic acid 2.54. T 101.2. -Blood and urine cultures 04/15 growing GNR. Plan: -Continue Zosyn -Monitor cultures for species/susceptibilities (2) Pneumonia Assessment & Plan: -04/15: Chest xray as noted above - consistent with pna Plan: -Continue sepsis workup -Continue Zosyn (3) Acute respiratory failure with hypoxia Assessment & Plan: -04/16: Admission requiring 4L NC. Baseline is RA. -Likely due to pneumonia (above) and volume overload 2/2 heart failure (below) Plan: -Continue supplementary oxygen as needed -Continue to monitor labs and SpO2. (4) Indwelling Wilson catheter present Assessment & Plan: -H/O frequent UTIs as noted above. UA pos for bacteria. History of VRE Plan: -Continue to use wilson -Continue Sepsis management as above -Consider Outpt wilson follow-up (5) Volume overload Assessment & Plan: -H/O CAD, CABG (2015) and Dual PPM (2015) on carvedilol (25mg), digoxin (125mcg) -PE significant for volume overload. Likely due to acute heart failure exacerbation. Treated with IV 20 lasix -04/16: Echo: LVEF 45%. Mod-severe MR. Elevated PA pressure: 45-50 systolic -04/17: Euvolemic on exam. Net fluid loss -600ml. Plan: -Stop tele -DC lasix -Monitor Is + Os -Continue DRAWING TENDER meds (6) Abdominal pain Assessment & Plan: -04/15: Onset of acute abdominal pain. Ab xray at OSH wnl. -04/16: Persistent tenderness to exam. Guarding present. -Abdominal series demonstrating possible ileus Plan: -Surgery consulted -Continue to follow (7) Afib Assessment & Plan: -04/15: EKG at OSH showing Afib in the setting of sepsis (above). Unclear previous history, but pt is currently taking Xarelto DRAWING TENDER Plan: -Continue to monitor -Continue Xarelto (8) Delirium Assessment & Plan: -04/16: A+O x1 (person). Unclear what pt's baseline is. -AMS likely multifactorial: Sepsis, hospital admission, hypoxia, pain Plan: -Continue to follow -Manage comorbid conditions MARIELENA ACEVEDO DO 04/18/21 0527: Subjective Subjective/Events-last exam Pt doing a lot better Transferring to fourth floor DC telemetry PT and OT will be ordered Hgb 9.5 Creatinine 1.25 Zosyn day number two, gram negative bacteremia unsure of ID and sensitivity right now Breathing a lot better Mild ileus noted Review of Systems General: Fatigue, Malaise Neurological: Weakness, Confusion Objective Exam General: Alert, Oriented X3, Cooperative, No Acute Distress Lungs: Clear to Auscultation Heart: Regular Rate Psych/Mental Status: Mental Status NL Assessment/Plan Assessment/Plan Assess & Plan/Chief Complaint IV antibiotics PT and OT Supportive care Supervisory-Addendum Brief Verification & Attestation Participated in pt care: history, MDM, physical Personally performed: exam, history, MDM, supervision of care Care discussed with: Medical Student Procedures: n/a Results interpretation: Verified all documentation Verification and Attestation of Medical Student E/M Service A medical student performed and documented this service in my presence. I reviewed and verified all information documented by the medical student and made modifications to such information, when appropriate. I personally performed the physical exam and medical decision making. Marielena Acevedo, Apr 18, 2021,05:26 KATY JEAN Apr 17, 2021 13:08 MARIELENA ACEVEDO DO Apr 18, 2021 05:27
--- NOTE | 2021-04-17 13:17 | Occupational Ther Daily Note ---
OT Current Status-Daily Note Subjective Pt reports upcoming transfer to 4th floor. "that means i'm getting better, doesn't it?" Mental Status/Objective Patient Orientation: Person, Place, Situation ADL-Treatment Therapy Code Descriptions/Definitions Functional [place]m Measure: 0=Not Assessed/NA 4=Minimal Assistance 1=Total Assistance 5=Supervision or Setup 2=Maximal Assistance 6=Modified Kulm 3=Moderate Assistance 7=Complete IndependenceSCALE: Activities may be completed with or without assistive devices. 8-Dgfbbhocks-msbaknq completes the activity by him/herself with no assistance from a helper. 5-Set-up or Clean-up Assistance-helper sets up or cleans up; patient completes activity. [place] assists only prior to or following the activity. 4-Supervision or Touching Assistance-helper provides verbal cues and/or touch ing/steadying and/or contact guard assistance as patient completes activity. Assistance may be provided throughout the activity or intermittently. 3-Partial/Moderate Assistance-helper does LESS THAN HALF the effort. [place] lifts, holds or supports trunk or limbs, but provides less than half the effort. 2-Substantial/Maximal Assistance-helper does MORE THAN HALF the effort. [place] lifts or holds trunk or limbs and provides more than half the effort. 1-Zospcxbuq-tjwrbr does ALL the effort. Patient does none of the effort to complete the activity. Or, the assistance of 2 or more helpers is required for the patient to complete the activity. If activity was not attempted, code reason: 7-Patient Refused. 9-Not Applicable-not attempted and the patient did not perform the activity before the current illness, exacerbation or injury. 10-Not Attempted due to Environmental Limitations-(lack of equipment, weather restraints, etc.). 88-Not Attempted due to Medical Conditions or Safety Concerns. Bathing Location: L Arm, R Arm, Chest, Abdomen Pt supine in bed at OT arrival. RN in room to address blood drainage from suprapubic catheter. Pt agreeable to sit in chair for lunch. Min-mod a to elevate torso to EOB. Upon sitting up, assist to don new gown due to being soiled with blood. Fair sitting balance. sit<>stand with CGA. Cues for controlled lowering as pt has tendency to plop. Heavy reliance on walker when standing, CGA. Partial sponge bath performed sitting in chair. Pt washed upper body only with SBA. Mild incoordination noted with RUE throughout task. O2 spot checked throughout, Pt remaining >92%. Pt sitting in chair, all needs within reach at end of session. Education OT Patient Education: Correct positioning, Energy conservation, Progress toward Goal/Update tx plan, Purpose of tx/functional activities, Rehab process, Safety issues, Transfer techniques Teaching Recipient: Patient Teaching Methods: Demonstration, Discussion Response to Teaching: Verbalize Understanding, Return Demonstration, Reinforcement Needed OT Short Term Goals Short Term Goals Oral hygiene: 5 Toileting hygiene: 4 Shower/bathe self: 3 Upper body dressin Lower body dressin Putting on/taking off footwear: 4 OT Skilled Nursing Goals Skilled Nursing Goals Toileting Hygiene (QC): 4 Shower/Bathe Self (QC): 4 Upper Body Dressing (QC): 5 Lower Body Dressing (QC): 4 On/Off Footwear (QC): 5 1=Demonstrate adherence to instructed precautions during ADL tasks. 2=Patient will verbalize/demonstrate understanding of assistive devices/m odifications for ADL. 3=Patient will improve strength/tolerance for activity to enable patient to perform ADL's. OT Education/Plan Problem List/Assessment Assessment: Decreased Activ Tolerance, Decreased Safety Aware, Decreased UE Strength, Impaired Cognition, Impaired Coordination, Impaired Funct Balance, Impaired Self-Care Skills Discharge Recommendations Plan/Recommendations: Continue POC Treatment Plan/Plan of Care Treatment,Training & Education: Yes Patient would benefit from OT for education, treatment and training to promote independence in ADL's, mobility, safety and/or upper extremity function for ADL's. Plan of Care: ADL Retraining, Functional Mobility, UE Funct Exercise/Act Treatment Duration: Apr 22, 2021 Frequency: 5 times per week Estimated Hrs Per Day: .25 hour per day Rehab Potential: Fair Time/GCodes Start Time: 12:07 Stop Time: 12:22 Total Time Billed (hr/min): 15 Billed Treatment Time 1, Miri Reynoso OT Apr 17, 2021 13:17
[2021-04-17] MEDS: SIMvastatin 10 MG (ZOCOR) TAB PO SCH (21:29)
[2021-04-17] MEDS: LOSARTAN 25 MG (COZAAR) TAB PO SCH (21:29)
[2021-04-18] MEDS: PIPERACILLIN/TAZOBACTAM (BULK) 4.5 GM in NS (IVPB) 100 ML IV SCH ×3 (01:28→17:30)
[2021-04-18] MEDS: RT-ALBUTEROL/IPRATROPIUM 3 ML (DUONEB) VIAL INH SCH ×6 (02:17→21:30)
[2021-04-18 03:31] VITALS: BP 152/66
[2021-04-18 06:43] LABS: BASOPHILS % (AUTO) 1 % (0-10); EOSINOPHILS # (AUTO) 0.1 10^3/uL (0.0-0.3); EOSINOPHILS % (AUTO) 2 % (0-10); HEMATOCRIT 29 % (40-54); HEMOGLOBIN 9.2 g/dL (13.3-17.7); LYMPHOCYTES # (AUTO) 0.9 10^3/uL (1.0-4.0); LYMPHOCYTES % (AUTO) 15 % (12-44); MEAN CORPUSCULAR HEMOGLOBIN 29 pg (25-34); MEAN CORPUSCULAR HGB CONC 31 g/dL (32-36); MEAN CORPUSCULAR VOLUME 91 fL (80-99); MONOCYTES # (AUTO) 0.5 10^3/uL (0.0-1.0); MONOCYTES % (AUTO) 8 % (0-12); NEUTROPHILS # (AUTO) 4.4 10^3/uL (1.8-7.8); NEUTROPHILS % (AUTO) 74 % (42-75); PLATELET COUNT 177 10^3/uL (130-400); WHITE BLOOD COUNT 5.9 10^3/uL (4.3-11.0)
[2021-04-18 06:47] LABS: ALBUMIN 3.2 GM/DL (3.2-4.5); BILIRUBIN,TOTAL 0.7 MG/DL (0.1-1.0); CALCIUM 8.6 MG/DL (8.5-10.1); CREATININE SERUM 1.28 MG/DL (0.60-1.30); POTASSIUM 3.5 MMOL/L (3.6-5.0); TOTAL PROTEIN 6.8 GM/DL (6.4-8.2)
--- NOTE | 2021-04-18 07:31 | Progress Note - Surgery ---
AZ GARNEREN 04/18/21 0731: Subjective Date Seen by a Provider: Apr 18, 2021 Time Seen by a Provider: 05:30 Subjective/Events-last exam Pt sitting up comfortably in bed and complains of lower abdominal/suprapubic pain from the indwelling catheter. Reports headache and some residual LE swelling. Denies any fever, chills, vomiting, diarrhea, or chest pain. Has not had bowel movement in 3 days, but reports passing gas. Review of Systems General: No Chills, No Fatigue; Appetite HEENT: Head Aches; No Visual Changes, No Sore Throat Pulmonary: No Dyspnea, No Cough Cardiovascular: Edema; No: Chest Pain, Lt Headedness Gastrointestinal: No: Nausea, Vomiting, Diarrhea Genitourinary: No Dysuria, No Frequency, No Incontinence Musculoskeletal: No: neck pain, back pain, leg pain Neurological: No: Weakness, Numbness, Seizures Focused Exam Lactate Level 04/15/21 23:37: Lactic Acid Level 2.54*H 04/16/21 01:40: Lactic Acid Level 1.65 Objective Exam Vital Signs Date Time Temp Pulse Resp B/P (MAP) Pulse Ox O2 Delivery O2 Flow Rate FiO2 04/18/21 06:32 94 Nasal Cannula 3.00 04/18/21 03:31 36.9 61 22 152/66 (94) 94 Nasal Cannula 3.00 04/18/21 02:17 93 Nasal Cannula 3.00 04/17/21 23:33 36.9 64 18 139/63 (88) 93 Nasal Cannula 3.00 04/17/21 22:17 94 Nasal Cannula 3.00 04/17/21 21:20 Nasal Cannula 4.00 04/17/21 19:08 37.1 70 18 159/61 (93) 94 Nasal Cannula 3.00 04/17/21 18:42 94 Nasal Cannula 3.00 04/17/21 15:34 36.8 60 20 131/67 (88) 95 Nasal Cannula 3.00 04/17/21 14:57 93 Nasal Cannula 3.00 04/17/21 13:34 36.2 35 18 148/58 (88) 96 Nasal Cannula 3.50 04/17/21 11:53 36.6 61 21 131/56 (81) 95 Nasal Cannula 4.00 04/17/21 10:27 94 Nasal Cannula 3.00 04/17/21 07:45 Nasal Cannula 4.00 96 04/17/21 07:41 36.7 80 18 153/66 (95) 97 Nasal Cannula 4.00 I & O 04/18/21 07:00 Intake Total 1280 ml Output Total 1800 ml Balance -520 ml Capillary Refill : General Appearance: No Apparent Distress, Chronically ill HEENT: PERRL/EOMI Neck: Normal Inspection, Non Tender, Supple Respiratory: Chest Non Tender, No Accessory Muscle Use, No Respiratory Distress Cardiovascular: Regular Rate, Rhythm, No JVD Gastrointestinal: soft, distended (Minimal distention), tenderness (Central lower tenderness to deep palpation, suprapubic catheter in place) Extremity: Non Tender, No Calf Tenderness, Pedal Edema Neurologic/Psychiatric: Alert, Oriented x3, No Motor/Sensory Deficits, Normal Mood/Affect Skin: Normal Color, Warm/Dry Results Lab Laboratory Tests 04/17/21 10:24: Glucometer 285H 04/17/21 15:40: Glucometer 177H 04/17/21 20:58: Glucometer 171H 04/18/21 04:56: Glucometer 225H 04/18/21 05:32: White Blood Count 5.9, Red Blood Count 3.23L, Hemoglobin 9.2L, Hematocrit 29L, Mean Corpuscular Volume 91, Mean Corpuscular Hemoglobin 29, Mean Corpuscular Hemoglobin Concent 31L, Red Cell Distribution Width 14.5, Platelet Count 177, Mean Platelet Volume 11.0, Immature Granulocyte % (Auto) 1, Neutrophils (%) (Auto) 74, Lymphocytes (%) (Auto) 15, Monocytes (%) (Auto) 8, Eosinophils (%) (Auto) 2, Basophils (%) (Auto) 1, Neutrophils # (Auto) 4.4, Lymphocytes # (Auto) 0.9L, Monocytes # (Auto) 0.5, Eosinophils # (Auto) 0.1, Basophils # (Auto) 0.0, Immature Granulocyte # (Auto) 0.0, Sodium Level 139, Potassium Level 3.5L, Chloride Level 106, Carbon Dioxide Level 21, Anion Gap 12, Blood Urea Nitrogen 16, Creatinine 1.28, Estimat Glomerular Filtration Rate 54, BUN/Creatinine Ratio 13, Glucose Level 229H, Calcium Level 8.6, Corrected Calcium 9.2, Total Bilirubin 0.7, Aspartate Amino Transf (AST/SGOT) 16, Alanine Aminotransferase (ALT/SGPT) 17, Alkaline Phosphatase 163H, Total Protein 6.8, Albumin 3.2 Assessment/Plan Assessment/Plan Assessment/Plan Assessment: UTI Sepsis Pneumonia Hyperglycemia 04/18/21: IV antibiotics PT and OT Supportive care TAMEKA ESQUIVEL DO 04/18/21 2012: Subjective Subjective/Events-last exam Patient states he is feeling better. Just has a bit of pain around the suprapubic catheter. This is tolerable though and has been improving. Patient is passing flatus. He is tolerating diet. He has some slight headache. Denies any other complaints. Hoping to go home tomorrow. Denies any nausea vomiting fever sweats chills shortness of breath or chest pain at this time. Objective Exam General Appearance: No Apparent Distress, Chronically ill HEENT: PERRL/EOMI Neck: Normal Inspection, Non Tender, Supple Respiratory: Chest Non Tender, No Accessory Muscle Use, No Respiratory Distress Cardiovascular: Regular Rate, Rhythm Gastrointestinal: soft, distended (very minimal), tenderness (Central lower tenderness to deep palpation, suprapubic catheter in place) Extremity: Non Tender, No Calf Tenderness, Pedal Edema Neurologic/Psychiatric: Alert, Oriented x3, No Motor/Sensory Deficits, Normal Mood/Affect Skin: Normal Color, Warm/Dry Lymphatic: No Adenopathy Assessment/Plan Assessment/Plan Assessment/Plan UTI Sepsis Pneumonia Hyperglycemia lower abdominal pain IV antibiotics PT and OT Supportive care Having flatus , abdominal pain likely from uti/suprapubic catheter. Supervisory-Addendum Brief Verification & Attestation Participated in pt care: history, MDM, physical Personally performed: exam, history, MDM, supervision of care Care discussed with: Medical Student Procedures: n/a Results interpretation: Verified all documentation Verification and Attestation of Medical Student E/M Service A medical student performed and documented this service in my presence. I reviewed and verified all information documented by the medical student and made modifications to such information, when appropriate. I personally performed the physical exam and medical decision making. Tameka Esquivel, Apr 18, 2021,20:13 GIAN GARNER Apr 18, 2021 07:31 TAMEKA ESQUIVEL DO Apr 18, 2021 20:12
[2021-04-18 07:37] VITALS: BP 152/71
[2021-04-18] MEDS: inSUlin ASPART (NovoLOG) 1 UNIT/0.01 ML (CHARGE PER UNIT) SC SCH ×7 (07:43→20:49)
[2021-04-18] MEDS: amLODIPine 10 MG (NORVASC) TAB PO SCH (07:43)
[2021-04-18] MEDS: DIGOXIN 0.125 MG (LANOXIN) TAB PO SCH (07:43)
[2021-04-18] MEDS: SENNA W/DOCUSATE (SENOKOT S) TABLET PO SCH ×2 (07:43→20:48)
[2021-04-18] MEDS: GLIMEPIRIDE 4 MG (AMARYL) TAB PO SCH (07:44)
[2021-04-18] MEDS: RIVAROXABAN 20 MG TABLET (XARELTO) PO SCH (07:44)
[2021-04-18] MEDS: polyethylene glycoL POWDER 17 GM (MIRALAX) PACK PO SCH ×2 (07:44→20:49)
[2021-04-18] MEDS: TORSEMIDE 20 MG (DEMADEX) TAB PO SCH (07:52)
--- NOTE | 2021-04-18 08:35 | Cardiology Progress Note ---
Subjective Date Seen by Provider: Apr 18, 2021 Time Seen by Provider: 08:33 Subjective/Events-last exam Patient is in a chair, feeling better, no new complaint Review of Systems General: No Chills, No Night Sweats; Fatigue; No Malaise, No Appetite, No Other HEENT: No Head Aches, No Visual Changes, No Eye Pain, No Ear Pain, No Dysphasia, No Sinus Congestion, No Post Nasal Drip, No Sore Throat, No Other Pulmonary: Dyspnea; No Cough, No Pleuritic Chest Pain, No Other Cardiovascular: Edema; No: Chest Pain, Palpitations, Orthopnea, Paroxysmal Noc. Dyspnea, Lt Headedness, Other Focused Exam Lactate Level 04/15/21 23:37: Lactic Acid Level 2.54*H 04/16/21 01:40: Lactic Acid Level 1.65 Objective-Cardiology Exam Last Set of Vital Signs Vital Signs 04/17/21 04/18/21 07:45 07:37 Temp 36.6 Pulse 62 Resp 20 B/P (MAP) 152/71 (98) Pulse Ox 95 O2 Delivery Nasal Cannula O2 Flow Rate 2.00 FiO2 96 I&O Intake and Output 04/18/21 00:00 Intake Total 930 ml Output Total 1610 ml Balance -680 ml Intake Oral 930 ml Output Urine Total 1610 ml General: Alert, Oriented X3, Cooperative, No Acute Distress HEENT: Atraumatic, PERRLA Neck: Supple, No JVD, No Thyromegaly Lungs: Clear to Auscultation Heart: Regular Rate Abdomen: Normal Bowel Sounds Extremities: Normal Pulses, Other (Trace edema) Skin: No Rashes, No Breakdown, No Significant Lesion Neuro: Normal Speech, Normal Tone, Sensation Intact Psych/Mental Status: Mental Status NL Results Lab Laboratory Tests 04/18/21 05:32 A/P-Cardiology Admission Diagnosis Urinary tract infection Pneumonia Coronary artery disease Hypertension Assessment/Plan Urinary tract infection with indwelling suprapubic catheter, receiving antibiotic, managed by medical team Pneumonia, sepsis, receiving antibiotics, managed by medical team Coronary artery disease, history of CABG, following with Dr. Trent, seen his veterinary technologist last month. Currently asymptomatic. Continue to monitor Paroxysmal atrial fibrillation, permanent pacemaker, continue on current medications and monitor Hypertension, controlled, monitor blood pressure Hyperlipidemia, monitor lipids EVENS GILMORE MD Apr 18, 2021 08:34
--- NOTE | 2021-04-18 10:01 | Progress Note ---
KATY JEAN 04/18/21 1001: Subjective Date Seen by a Provider: Apr 18, 2021 Time Seen by a Provider: 11:00 Subjective/Events-last exam Today Mr. Cristina is feeling well. Sitting upright and alert during our conversation. Reports that breathing, abdominal pain, and fatigue have improved. Reports abdomen is splitting machine tender. Reports long standing history of orthopnea and edema Reports that he would feel comfortable going to an inpatient rehab facility closer to his home in [place], [place]. Review of Systems General: No Chills, No Night Sweats, No Fatigue, No Malaise, No Appetite, No Other Pulmonary: Dyspnea, Cough Cardiovascular: Orthopnea; No: Chest Pain, Palpitations, Paroxysmal Noc. Dyspnea, Edema, Lt Headedness, Other Gastrointestinal: Abdominal Pain Genitourinary: No Dysuria, No Frequency, No Incontinence, No Hematuria, No Retention, No Other Neurological: No: Weakness Focused Exam Lactate Level 04/15/21 23:37: Lactic Acid Level 2.54*H 04/16/21 01:40: Lactic Acid Level 1.65 Objective Exam Last Set of Vital Signs Vital Signs Date Time Temp Pulse Resp B/P (MAP) Pulse Ox O2 Delivery O2 Flow Rate FiO2 04/18/21 07:37 36.6 62 20 152/71 (98) 95 Nasal Cannula 2.00 04/17/21 07:45 96 Capillary Refill : I&O Intake and Output 04/18/21 00:00 Intake Total 930 ml Output Total 1610 ml Balance -680 ml Intake Oral 930 ml Output Urine Total 1610 ml General: Alert, No Acute Distress Lungs: Clear to Auscultation (Lungs clear), Normal Air Movement Heart: Regular Rate, Normal S1, Normal S2 Abdomen: Normal Bowel Sounds, Soft, Other (Tender to palpation) Neuro: Normal Speech Results Lab Laboratory Tests 04/17/21 10:24: Glucometer 285H 04/17/21 15:40: Glucometer 177H 04/17/21 20:58: Glucometer 171H 04/18/21 04:56: Glucometer 225H 04/18/21 05:32: White Blood Count 5.9, Red Blood Count 3.23L, Hemoglobin 9.2L, Hematocrit 29L, Mean Corpuscular Volume 91, Mean Corpuscular Hemoglobin 29, Mean Corpuscular Hemoglobin Concent 31L, Red Cell Distribution Width 14.5, Platelet Count 177, Mean Platelet Volume 11.0, Immature Granulocyte % (Auto) 1, Neutrophils (%) (Auto) 74, Lymphocytes (%) (Auto) 15, Monocytes (%) (Auto) 8, Eosinophils (%) (Auto) 2, Basophils (%) (Auto) 1, Neutrophils # (Auto) 4.4, Lymphocytes # (Auto) 0.9L, Monocytes # (Auto) 0.5, Eosinophils # (Auto) 0.1, Basophils # (Auto) 0.0, Immature Granulocyte # (Auto) 0.0, Sodium Level 139, Potassium Level 3.5L, Chloride Level 106, Carbon Dioxide Level 21, Anion Gap 12, Blood Urea Nitrogen 16, Creatinine 1.28, Estimat Glomerular Filtration Rate 54, BUN/Creatinine Ratio 13, Glucose Level 229H, Calcium Level 8.6, Corrected Calcium 9.2, Total Bilirubin 0.7, Aspartate Amino Transf (AST/SGOT) 16, Alanine Aminotransferase (ALT/SGPT) 17, Alkaline Phosphatase 163H, Total Protein 6.8, Albumin 3.2 Assessment/Plan Assessment/Plan Assess & Plan/Chief Complaint Nicholas Cristina is an 80yo male w/ PMH significant for MH sf frequent UTI with chronic indwelling catheter, 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 Blood and urine cultures from 04/15 at OSH showing GNR. Overal plan is the following -Continue Zosyn (Day 3) -Monitor blood and urine cultures for species/susceptibilities -Continue laxatives. -Continue captain room service diuretics -Discharge 04/19, likely to SNF Diagnosis/Problems Diagnosis/Problems (1) Sepsis Assessment & Plan: -History of frequent UTIs in setting of chronic indwelling catheter. -08/31/2020: Admission for VRE -Admission to OSH 04/15 for diffuse abdominal pain. Admission labs significant for 3/4 SIRS: HR 106, RR 24, T 101.2. Lactic acid 2.7 -Chest xray 04/15: Bibasilar airspace disease, left worse than right, consistent with pneumonia -UA: pos nitrites, 4+ bacteria -1/2 blood cultures positive for Gram neg rods (04/15). -Urine cultures: NGTD Day 1 -Started on Rocephin -Transfer to [facility] 04/15. Requiring 4L NC. Lactic acid 2.54. T 101.2. -Blood and urine cultures 04/15 growing GNR. Plan: -Continue Zosyn (Day 3) -Monitor cultures for species/susceptibilities (2) Pneumonia Assessment & Plan: -04/15: Chest xray as noted above - consistent with pna -04/18: Lungs CTA bilaterally. Improved dyspnea. Plan: -Continue sepsis workup -Continue Zosyn (Day 3) (3) Acute respiratory failure with hypoxia Assessment & Plan: -04/16: Admission requiring 4L NC. Baseline is RA. -Likely due to pneumonia (above) and volume overload 2/2 heart failure (below) -04/18: Lungs CTA. Requiring 2L NC Plan: -Continue supplementary oxygen as needed -Continue to monitor labs and SpO2. (4) Indwelling Wilson catheter present Assessment & Plan: -H/O frequent UTIs as noted above. UA pos for bacteria. History of VRE Plan: -Continue to use wilson -Continue Sepsis management as above -Consider Outpt wilson follow-up (5) Volume overload Assessment & Plan: -H/O CAD, CABG (2015) and Dual PPM (2015) on carvedilol (25mg), digoxin (125mcg) -PE significant for volume overload. Likely due to acute heart failure exacerbation. Treated with IV 20 lasix -04/16: Echo: LVEF 45%. Mod-severe MR. Elevated PA pressure: 45-50 systolic -04/18: Continues to diuresis. ~1500mL net loss since admission. 3+ LE edema Plan: -Monitor Is + Os -Continue Torsemide -Monitor potassium -Continue PNEUMATIC TESTER MECHANIC meds (6) Abdominal pain Assessment & Plan: Likely due to constipation. -04/15: Onset of acute abdominal pain. Ab xray at OSH wnl. -04/16: Persistent tenderness to exam. Guarding present. -Abdominal series demonstrating possible ileus -04/18: Appetite improved. Pain relieved. No BM since admission Plan: -Continue constipation regimen. -Surgery consulted -Continue to follow (7) Afib Assessment & Plan: -04/15: EKG at OSH showing Afib in the setting of sepsis (above). Unclear previous history, but pt is currently taking Xarelto PNEUMATIC TESTER MECHANIC Plan: -Continue to monitor -Continue Xarelto (8) Delirium Status: Resolved Assessment & Plan: -04/16: A+O x1 (person). Unclear what pt's baseline is. -AMS likely multifactorial: Sepsis, hospital admission, hypoxia, pain Plan: -Continue to follow -Manage comorbid conditions Resolution Date/Time: 04/18/21 @ 12:32 MARIELENA ACEVEDO DO 04/19/21 0552: Subjective Subjective/Events-last exam Patient doing much better Labs reviewed Check meds and labs Objective Exam General: Alert, Oriented X3, Cooperative Psych/Mental Status: Mental Status NL Assessment/Plan Assessment/Plan Assess & Plan/Chief Complaint detention placement Supervisory-Addendum Brief Verification & Attestation Participated in pt care: history, MDM, physical Personally performed: exam, history, MDM, supervision of care Care discussed with: Medical Student Procedures: n/a Results interpretation: Verified all documentation Verification and Attestation of Medical Student E/M Service A medical student performed and documented this service in my presence. I reviewed and verified all information documented by the medical student and made modifications to such information, when appropriate. I personally performed the physical exam and medical decision making. Marielena Acevedo, Apr 19, 2021,05:51 KATY JEAN Apr 18, 2021 10:01 MARIELENA ACEVEDO DO Apr 19, 2021 05:52
--- NOTE | 2021-04-18 10:53 | Physical Therapy Daily Note ---
PT Daily Note-Current Subjective Patient in recliner pre tx, agrees to PT, has no complaints of pain. Appearance Patient in recliner post tx with nurse call, phone, tray, all needs met. Mental Status Patient Orientation: Person, Place, Situation Attachments: Suprapubic Catheter Transfers SCALE: Activities may be completed with or without assistive devices. 7-Faryeddocv-dswqtmf completes the activity by him/herself with no assistance from a helper. 5-Set-up or Clean-up Assistance-helper sets up or cleans up; patient completes activity. [place] assists only prior to or following the activity. 4-Supervision or Touching Assistance-helper provides verbal cues and/or touching/steadying and/or contact guard assistance as patient completes acti vity. Assistance may be provided throughout the activity or intermittently. 3-Partial/Moderate Assistance-helper does LESS THAN HALF the effort. [place] lifts, holds or supports trunk or limbs, but provides less than half the effort. 2-Substantial/Maximal Assistance-helper does MORE THAN HALF the effort. [place] lifts or holds trunk or limbs and provides more than half the effort. 1-Kpnmqfgak-cyccdl does ALL the effort. Patient does none of the effort to complete the activity. Or, the assistance of 2 or more helpers is required for the patient to complete the activity. If activity was not attempted, code reason: 7-Patient Refused. 9-Not Applicable-not attempted and the patient did not perform the activity before the current illness, exacerbation or injury. 10-Not Attempted due to Environmental Limitations-(lack of equipment, weather restraints, etc.). 88-Not Attempted due to Medical Conditions or Safety Concerns. Sit to Stand (QC): 4 Chair/Dqk-qa-Xmufi Xfer(QC): 4 CGA, patient has some difficulty with sit to stand but can do it without any physical assist Gait Training Distance: 50' Walk 10 feet (QC): 4 Walk 50 ft with 2 Turns(QC): 4 Gait Persons Needed: 1 Gait Assistive Device: FWW slow but steady ambulation Exercises Seated Therapy Exercises: Ankle pumps, Long arc quads Seated Reps: 20 Treatments transfers, ambulation, LE strengthening Assessment Current Status: Fair Progress improved endurance PT Band Aid Machine Operator Goals Band Aid Machine Operator Goals PT Prison Goals Time Frame: Apr 27, 2021 Roll Left & Right (QC): 4 Sit to Lying (QC): 4 Lying-Sitting on Side/Bed(QC): 4 Sit to Stand (QC): 4 Chair/Jnv-gk-Hbefy Xfer(QC): 4 Toilet Transfer (QC): 4 Walk 10 feet (QC): 4 Walk 50ft with 2 Turns (QC): 4 PT Plan Problem List Problem List: Activity Tolerance, Functional Strength, Safety, Balance, Gait, Transfer, Bed Mobility, ROM Treatment/Plan Treatment Plan: Continue Plan of Care Treatment Plan: Bed Mobility, Education, Functional Activity Vel[place], Functional Strength, Gait, Safety, Therapeutic Exercise, Transfers Treatment Duration: Apr 27, 2021 Frequency: 6 times per week Estimated Hrs Per Day: .25 hour per day Patient and/or Family Agrees t: Yes Safety Risks/Education Patient Education: Gait Training, Transfer Techniques, Correct Positioning, Safety Issues Teaching Recipient: Patient Teaching Methods: Demonstration, Discussion Response to Teaching: Reinforcement Needed Time/GCodes Time In: 1032 Time Out: 1042 Total Billed Treatment Time: 10 Total Billed Treatment 1 visit FA BLANK ZAIDI PT Apr 18, 2021 10:53
[2021-04-18 11:34] VITALS: BP 152/80
[2021-04-18] MEDS ORDERED: LACTULOSE SYRUP 10GM/15ML (ENULOSE) 30ML UDC PO ONE (13:45)
[2021-04-18] MEDS ORDERED: BISACODYL 10 MG SUPP (DULCOLAX) PR ONE (13:45)
--- NOTE | 2021-04-18 15:05 | Occupational Ther Daily Note ---
OT Current Status-Daily Note Subjective "I'm feeling much better today." ADL-Treatment Therapy Code Descriptions/Definitions Functional [place] Measure: 0=Not Assessed/NA 4=Minimal Assistance 1=Total Assistance 5=Supervision or Setup 2=Maximal Assistance 6=Modified [place] 3=Moderate Assistance 7=Complete IndependenceSCALE: Activities may be completed with or without assistive devices. 6-Glyiuafqsf-bvlazyk completes the activity by him/herself with no assistance from a helper. 5-Set-up or Clean-up Assistance-helper sets up or cleans up; patient completes activity. [place] assists only prior to or following the activity. 4-Supervision or Touching Assistance-helper provides verbal cues and/or touching/steadying and/or contact guard assistance as patient completes activity. Assistance may be provided throughout the activity or intermittently. 3-Partial/Moderate Assistance-helper does LESS THAN HALF the effort. [place] lifts, holds or supports trunk or limbs, but provides less than half the effort. 2-Substantial/Maximal Assistance-helper does MORE THAN HALF the effort. [place] lifts or holds trunk or limbs and provides more than half the effort. 9-Cvszkovha-unewxt does ALL the effort. Patient does none of the effort to complete the activity. Or, the assistance of 2 or more helpers is required for the patient to complete the activity. If activity was not attempted, code reason: 7-Patient Refused. 9-Not Applicable-not attempted and the patient did not perform the activity be fore the current illness, exacerbation or injury. 10-Not Attempted due to Environmental Limitations-(lack of equipment, weather restraints, etc.). 88-Not Attempted due to Medical Conditions or Safety Concerns. Other Treatment Pt participated in UE AROM exercises with emphasis on improving strength and endurance needed for adls and transfers. Pt able to follow cues and perform each movement through full range. Short rest breaks needed. Pt on room air, Mild SOB observed, cues for PLB. Education OT Patient Education: Energy conservation, Exercise program, Progress toward Goal/Update tx plan, Purpose of tx/functional activities Teaching Recipient: Patient Teaching Methods: Demonstration, Discussion Response to Teaching: Verbalize Understanding, Return Demonstration, R einforcement Needed OT Short Term Goals Short Term Goals Oral hygiene: 5 Toileting hygiene: 4 Shower/bathe self: 3 Upper body dressin Lower body dressin Putting on/taking off footwear: 4 OT Salesperson Women'S Hats Goals Usp Goals Toileting Hygiene (QC): 4 Shower/Bathe Self (QC): 4 Upper Body Dressing (QC): 5 Lower Body Dressing (QC): 4 On/Off Footwear (QC): 5 1=Demonstrate adherence to instructed precautions during ADL tasks. 2=Patient will verbalize/demonstrate understanding of assistive devices/modifications for ADL. 3=Patient will improve strength/tolerance for activity to enable patient to perform ADL's. OT Education/Plan Problem List/Assessment Assessment: Decreased Activ Tolerance, Decreased UE Strength, Impaired Self- Care Skills Discharge Recommendations Plan/Recommendations: Continue POC Treatment Plan/Plan of Care Treatment,Training & Education: Yes Patient would benefit from OT for education, treatment and training to promote independence in ADL's, mobility, safety and/or upper extremity function for ADL's. Plan of Care: ADL Retraining, Functional Mobility, UE Funct Exercise/Act Treatment Duration: Apr 22, 2021 Frequency: 5 times per week Estimated Hrs Per Day: .25 hour per day Agreement: Yes Rehab Potential: Fair Time/GCodes Start Time: 14:22 Stop Time: 14:32 Total Time Billed (hr/min): 10 Billed Treatment Time 1, EX Miri Lance OT Apr 18, 2021 15:05
[2021-04-18 16:00] VITALS: BP 132/67
[2021-04-18] MEDS: ACETAMINOPHEN 325 MG TABLET PO PRN (17:36)
[2021-04-18 19:50] VITALS: BP 129/66
[2021-04-18] MEDS: SIMvastatin 10 MG (ZOCOR) TAB PO SCH (20:48)
[2021-04-18] MEDS: LACTULOSE SYRUP 10GM/15ML (ENULOSE) 30ML UDC PO SCH (20:49)
[2021-04-18] MEDS: LOSARTAN 25 MG (COZAAR) TAB PO SCH (20:49)
[2021-04-18 23:11] VITALS: BP 152/68
[2021-04-19] MEDS: PIPERACILLIN/TAZOBACTAM (BULK) 4.5 GM in NS (IVPB) 100 ML IV SCH ×2 (01:35→11:04)
[2021-04-19] MEDS: RT-ALBUTEROL/IPRATROPIUM 3 ML (DUONEB) VIAL INH SCH ×4 (02:16→14:22)
[2021-04-19 03:23] VITALS: BP 156/67
[2021-04-19] MEDS: inSUlin ASPART (NovoLOG) 1 UNIT/0.01 ML (CHARGE PER UNIT) SC SCH ×6 (06:45→16:55)
--- NOTE | 2021-04-19 07:16 | Progress Note - Surgery ---
GIAN GARNER 04/19/21 0716: Subjective Date Seen by a Provider: Apr 19, 2021 Time Seen by a Provider: 05:30 Subjective/Events-last exam Pt sitting up and resting comfortably in chair. Reports that abdominal pain has decreased significantly compared to yesterday and last bowel movement was last night. Denies any fever, chills, vomiting, diarrhea, or chest pain. Review of Systems General: No Chills, No Fatigue; Appetite HEENT: No Head Aches, No Visual Changes, No Sore Throat Pulmonary: No Dyspnea, No Cough Cardiovascular: No: Chest Pain, Palpitations, Edema Gastrointestinal: No: Nausea, Vomiting, Diarrhea Genitourinary: No Dysuria, No Frequency, No Incontinence Musculoskeletal: No: neck pain, back pain, leg pain Neurological: No: Weakness, Numbness, Seizures Objective Exam Vital Signs Date Time Temp Pulse Resp B/P (MAP) Pulse Ox O2 Delivery O2 Flow Rate FiO2 04/19/21 03:23 36.8 62 18 156/67 (96) 93 Room Air 04/19/21 02:16 89 Room Air 04/18/21 23:11 36.8 67 20 152/68 (96) 94 Room Air 04/18/21 21:30 90 Room Air 04/18/21 20:51 Nasal Cannula 4.00 04/18/21 19:50 37.2 60 18 129/66 (87) 95 Room Air 04/18/21 19:18 91 Room Air 04/18/21 16:00 36.1 59 18 132/67 (88) 93 Room Air 04/18/21 14:24 93 Room Air 04/18/21 11:34 36.4 62 18 152/80 (104) 95 Room Air 04/18/21 10:14 97 Nasal Cannula 2.00 04/18/21 09:00 Nasal Cannula 4.00 04/18/21 07:37 36.6 62 20 152/71 (98) 95 Nasal Cannula 2.00 I & O 04/19/21 06:59 Intake Total 1880 ml Output Total 3575 ml Balance -1695 ml Capillary Refill : General Appearance: No Apparent Distress, Chronically ill HEENT: PERRL/EOMI Neck: Normal Inspection, Non Tender, Supple Respiratory: Chest Non Tender, No Accessory Muscle Use, No Respiratory Distress, Decreased Breath Sounds Cardiovascular: No Regular Rate, Rhythm Gastrointestinal: soft, distended (minimal), rebound (R abdominal), tenderness (Minimal central lower tenderness to deep palpation, suprapubic catheter in place) Extremity: Non Tender, No Calf Tenderness Neurologic/Psychiatric: Alert, Oriented x3, No Motor/Sensory Deficits, Normal Mood/Affect Skin: Normal Color, Warm/Dry Results Lab Laboratory Tests 04/18/21 11:33: Glucometer 244H 04/18/21 15:32: Glucometer 155H 04/18/21 20:08: Glucometer 104 04/19/21 04:55: Glucometer 219H Assessment/Plan Assessment/Plan Assessment/Plan UTI Sepsis Pneumonia Hyperglycemia Pt sitting up comfortably in chair. Reports abdominal tenderness is now very minimal if any. Bowel movement last night. Will likely [facility] to [facility] TAMEKA ESQUIVEL DO 04/19/212128: Subjective Subjective/Events-last exam Patient with positive bowel function. He is not having any abdominal pain now. He states pain he does have is just slightly around the suprapubic catheter but very minimal. Patient wanting to go home. Patient planning on discharge today. He denies any nausea vomiting fever sweats chills shortness of breath or chest pain. Objective Exam General Appearance: No Apparent Distress, Chronically ill HEENT: PERRL/EOMI, Normal ENT Inspection Neck: Normal Inspection, Non Tender Respiratory: Chest Non Tender, No Accessory Muscle Use, No Respiratory Distress Cardiovascular: Regular Rate, Rhythm, No JVD Gastrointestinal: non tender, soft; No distended, No rebound (R abdominal), No tenderness (Minimal central lower tenderness to deep palpation, suprapubic catheter in place) Extremity: Non Tender, No Calf Tenderness Neurologic/Psychiatric: Alert, Oriented x3, No Motor/Sensory Deficits, Normal Mood/Affect Skin: Normal Color, Warm/Dry Lymphatic: No Adenopathy Assessment/Plan Assessment/Plan Assessment/Plan UTI Sepsis Pneumonia Hyperglycemia lower abdominal pain Convert to oral antibiotics PT and OT Supportive care Having flatus , abdominal pain likely from uti/suprapubic catheter has pretty much resolved except for minimal discomfort at suprapubic catheter. Supervisory-Addendum Brief Verification & Attestation Participated in pt care: history, MDM, physical Personally performed: exam, history, MDM, supervision of care Care discussed with: Medical Student Procedures: n/a Results interpretation: Verified all documentation Verification and Attestation of Medical Student E/M Service A medical student performed and documented this service in my presence. I reviewed and verified all information documented by the medical student and made modifications to such information, when appropriate. I personally performed the physical exam and medical decision making. Tameka Esquivel, Apr 19, 2021,21:29 GIAN GARNER Apr 19, 2021 07:16 TAMEKA ESQUIVEL DO Apr 19, 2021 21:29
[2021-04-19 07:23] LABS: BASOPHILS # (AUTO) 0.1 10^3/uL (0.0-0.1); BASOPHILS % (AUTO) 1 % (0-10); EOSINOPHILS # (AUTO) 0.1 10^3/uL (0.0-0.3); EOSINOPHILS % (AUTO) 3 % (0-10); HEMATOCRIT 32 % (40-54); LYMPHOCYTES # (AUTO) 0.7 10^3/uL (1.0-4.0); LYMPHOCYTES % (AUTO) 13 % (12-44); MEAN CORPUSCULAR HEMOGLOBIN 28 pg (25-34); MEAN CORPUSCULAR HGB CONC 31 g/dL (32-36); MEAN CORPUSCULAR VOLUME 90 fL (80-99); MEAN PLATELET VOLUME 10.8 fL (9.0-12.2); MONOCYTES # (AUTO) 0.3 10^3/uL (0.0-1.0); MONOCYTES % (AUTO) 6 % (0-12); NEUTROPHILS # (AUTO) 3.9 10^3/uL (1.8-7.8); NEUTROPHILS % (AUTO) 77 % (42-75); PLATELET COUNT 218 10^3/uL (130-400); WHITE BLOOD COUNT 5.1 10^3/uL (4.3-11.0)
[2021-04-19 07:40] LABS: ALBUMIN 3.5 GM/DL (3.2-4.5); POTASSIUM 3.3 MMOL/L (3.6-5.0)
[2021-04-19 07:42] LABS: CALCIUM 8.9 MG/DL (8.5-10.1)
[2021-04-19 07:43] LABS: TOTAL PROTEIN 7.5 GM/DL (6.4-8.2)
[2021-04-19 07:45] LABS: BILIRUBIN,TOTAL 0.6 MG/DL (0.1-1.0)
[2021-04-19 07:46] LABS: CREATININE SERUM 1.27 MG/DL (0.60-1.30)
[2021-04-19 08:00] VITALS: BP 172/75
[2021-04-19] MEDS: GLIMEPIRIDE 4 MG (AMARYL) TAB PO SCH (08:44)
[2021-04-19] MEDS: RIVAROXABAN 20 MG TABLET (XARELTO) PO SCH (08:44)
[2021-04-19] MEDS: DIGOXIN 0.125 MG (LANOXIN) TAB PO SCH (08:44)
[2021-04-19] MEDS: TORSEMIDE 20 MG (DEMADEX) TAB PO SCH (08:44)
[2021-04-19] MEDS: amLODIPine 10 MG (NORVASC) TAB PO SCH (08:44)
[2021-04-19] MEDS: SENNA W/DOCUSATE (SENOKOT S) TABLET PO SCH (08:45)
[2021-04-19] MEDS: LACTULOSE SYRUP 10GM/15ML (ENULOSE) 30ML UDC PO SCH (08:45)
[2021-04-19] MEDS: polyethylene glycoL POWDER 17 GM (MIRALAX) PACK PO SCH (08:45)
--- NOTE | 2021-04-19 10:02 | Progress Note ---
Subjective Date Seen by a Provider: Apr 19, 2021 Time Seen by a Provider: 11:00 Subjective/Events-last exam Today Mr. Cristina reports that he is feeling well. He has had 2 BMs in the past 12hours and is no longer requiring supplemental oxygen. His abdominal pain has resolved. When discussing placement after discharge, pt was hesitant. Yesterday he told the [employer]ow[employer] operator of this note that he would be okay with going to a facility near [place], [place]. However, since then he has since declined this option to both the SW and the justowriter operator today 04/19. He would prefer to go home. He continues to work with PT and reports that his strength is improving. Review of Systems General: No Chills, No Night Sweats, No Fatigue, No Malaise, No Appetite, No Other HEENT: No Head Aches Pulmonary: No Dyspnea, No Cough Cardiovascular: No: Chest Pain, Palpitations Gastrointestinal: Diarrhea; No: Nausea, Vomiting, Abdominal Pain, Constipation Genitourinary: No Dysuria, No Frequency, No Incontinence Neurological: No: Weakness Objective Exam Last Set of Vital Signs Vital Signs Date Time Temp Pulse Resp B/P (MAP) Pulse Ox O2 Delivery O2 Flow Rate FiO2 04/19/21 08:00 36.0 65 16 172/75 (107) 95 Room Air 04/18/21 20:51 4.00 04/17/21 07:45 96 Capillary Refill : I&O Intake and Output 04/19/21 00:00 Intake Total 1480 ml Output Total 3225 ml Balance -1745 ml Intake Oral 1480 ml Output Urine Total 3225 ml General: Alert, No Acute Distress HEENT: Mucous Memb Moist/[place] Heart: Regular Rate, Normal S1, Normal S2, No Murmurs Abdomen: Normal Bowel Sounds, Soft, No Tenderness Extremities: Normal Pulses, Other (BLE Edema) Neuro: Normal Speech Results Lab Laboratory Tests 04/18/21 11:33: Glucometer 244H 04/18/21 15:32: Glucometer 155H 04/18/21 20:08: Glucometer 104 04/19/21 04:55: Glucometer 219H 04/19/21 07:07: White Blood Count 5.1, Red Blood Count 3.55L, Hemoglobin 10.0L, Hematocrit 32L, Mean Corpuscular Volume 90, Mean Corpuscular Hemoglobin 28, Mean Corpuscular Hemoglobin Concent 31L, Red Cell Distribution Width 14.5, Platelet Count 218, Mean Platelet Volume 10.8, Immature Granulocyte % (Auto) 0, Neutrophils (%) (Auto) 77H, Lymphocytes (%) (Auto) 13, Monocytes (%) (Auto) 6, Eosinophils (%) (Auto) 3, Basophils (%) (Auto) 1, Neutrophils # (Auto) 3.9, Lymphocytes # (Auto) 0.7L, Monocytes # (Auto) 0.3, Eosinophils # (Auto) 0.1, Basophils # (Auto) 0.1, Immature Granulocyte # (Auto) 0.0, Sodium Level 139, Potassium Level 3.3L, Chloride Level 104, Carbon Dioxide Level 21, Anion Gap 14, Blood Urea Nitrogen 15, Creatinine 1.27, Estimat Glomerular Filtration Rate 54, BUN/Creatinine Ratio 12, Glucose Level 264H, Calcium Level 8.9, Corrected Calcium 9.3, Total Bilirubin 0.6, Aspartate Amino Transf (AST/SGOT) 18, Alanine Aminotransferase (ALT/SGPT) 18, Alkaline Phosphatase 228H, Total Protein 7.5, Albumin 3.5 Assessment/Plan Assessment/Plan Assess & Plan/Chief Complaint Nicholas Cristina is an 80yo male w/ PMH significant for MH sf frequent UTI with chronic indwelling catheter, 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 Blood and urine cultures from 04/15 at OSH showing GNR. Changes today are the following -Continue Zosyn (Day 4) -DC laxatives -Discharge 04/19, likely to home Diagnosis/Problems Diagnosis/Problems (1) Sepsis Assessment & Plan: -History of frequent UTIs in setting of chronic indwelling catheter. -08/31/2020: Admission for VRE -Admission to OSH 04/15 for diffuse abdominal pain. Admission labs significant for 3/4 SIRS: HR 106, RR 24, T 101.2. Lactic acid 2.7 -Chest xray 04/15: Bibasilar airspace disease, left worse than right, consistent with pneumonia -UA: pos nitrites, 4+ bacteria -1/2 blood cultures positive for Gram neg rods (04/15). -Urine cultures: NGTD Day 1 -Started on Rocephin -Transfer to [place] 04/15. Requiring 4L NC. Lactic acid 2.54. T 101.2. -Cultures from 04/15: Blood: Klebsiella resistant to amp Urine: E. Coli, Klebsiella resistant to amp. MDR Morganella sensitive to amikacin, aztreonam and ceftriaxone Plan: -Continue Zosyn (Day 4) (2) Pneumonia Status: Resolved Assessment & Plan: -04/15: Chest xray as noted above - consistent with pna -04/18: Lungs CTA bilaterally. Improved dyspnea. Plan: -Continue Zosyn (Day 4) Resolution Date/Time: 04/19/21 @ 10:04 (3) Acute respiratory failure with hypoxia Status: Resolved Assessment & Plan: -04/16: Admission requiring 4L NC. Baseline is RA. -Likely due to pneumonia (above) and volume overload 2/2 heart failure (below) -04/18: Lungs CTA. Requiring 2L NC -04/19: No longer requiring supp oxygen Plan: -Continue to monitor labs and SpO2. Resolution Date/Time: 04/19/21 @ 10:04 (4) Indwelling Wilson catheter present Status: Chronic Assessment & Plan: -H/O frequent UTIs as noted above. UA pos for bacteria. History of VRE Plan: -Continue to use wilson -Continue Sepsis management as above -Consider Outpt wilson follow-up (5) Volume overload Assessment & Plan: -H/O CAD, CABG (2015) and Dual PPM (2015) on carvedilol (25mg), digoxin (125mcg) -PE significant for volume overload. Likely due to acute heart failure exacerbation. Treated with IV 20 lasix -04/16: Echo: LVEF 45%. Mod-severe MR. Elevated PA pressure: 45-50 systolic -04/19: Continues to diuresis. ~3L net loss since admission. 3+ LE edema Plan: -Monitor Is + Os -Continue Torsemide -Monitor potassium -Continue NET MENDER meds (6) Abdominal pain Status: Resolved Assessment & Plan: Likely due to constipation. -04/15: Onset of acute abdominal pain. Ab xray at OSH wnl. -04/16: Persistent tenderness to exam. Guarding present. -Abdominal series demonstrating possible ileus -04/19: Pain resolved with BM Plan: -Continue to follow Resolution Date/Time: 04/19/21 @ 10:06 (7) Afib Assessment & Plan: -04/15: EKG at OSH showing Afib in the setting of sepsis (above). Unclear previous history, but pt is currently taking Xarelto NET MENDER Plan: -Continue to monitor -Continue Xarelto (8) Delirium Status: Resolved Assessment & Plan: -04/16: A+O x1 (person). Unclear what pt's baseline is. -AMS likely multifactorial: Sepsis, hospital admission, hypoxia, pain Plan: -Continue to follow -Manage comorbid conditions Resolution Date/Time: 04/18/21 @ 12:32 KATY JEAN Apr 19, 2021 10:02
[2021-04-19] MEDS ORDERED: AMOX-358 PO (11:44)
--- NOTE | 2021-04-19 11:45 | D/C HH Face to Face Order ---
D/C Face to Face Orders Reconcile Patient Problems Problems Reviewed?: Yes Instructions for Patient Home Health Patient Instructions/FollowUp: PCP Dr Amezquita in 1 week Physician to follow Patient: Alirio Discharge Diet for Home: ADA Diet Patient Problems: Sepsis UTI Bacteremia Patient Data-Allergies,Ht & Wt Patient Allergies: Coded Allergies: naproxen (Verified Allergy, Unknown, 04/15/21) Home Health Need/Face to Face Date of Face to Face: Apr 19, 2021 Clinical Findings: Instability, Muscle weakness I have seen Pt [id number]: Yes Discharged To: Home Diagnosis/Conditions: Sepsis Patient is Homebound due to: CognItive deficits, Corine fall risk due to instabilty, Muscle weakness Homebound Status Due to the above stated illness, injury or surgical procedure (medical condition or diagnosis) and associated clinical findings, the patient is homebound because of his/her inability to leave home except with aid of a supportive device and/or person AND leaving the home requires a considerable and taxing effort or is medically contraindicated. Pt req the following assistanc: [facility] Nursing Orders Home Health Services Order: Nursing Services, Machine [facility] Coremaker-Evaluate & Treat, Physical Therapy-Evaluate & Treat Certify Stmt I certify that this patient is under my care and that I, a nurse practitioner or a physician; a virtual assistant working with me, had a face to face encounter that - meets the physician face to face encounter requirements with this patient as dated. ROSA ACEVEDO DO Apr 19, 2021 11:45
--- NOTE | 2021-04-19 11:46 | Discharge Summary ---
Diagnosis/Chief Complaint Date of Admission Apr 15, 2021 at 23:29 Date of Discharge Discharge Date: Apr 19, 2021 Discharge Diagnosis Sepsis Delirium Atrial fibrillation Chronic indwelling catheter Advanced age chronic debility Reason Hospital Visit CC: Altered mental status HPI: This is an 80yoWM clinic pt of Dr. Amezquita who was transferred here from [facility] Renetta HUSAIN had taken care of him at the ER and reported that he had increased confusion diagnosed with a UTI, his Covid-19 test was negative and he was placed on Zosyn after steiner-cultured was reported back to a gram negative rody today but he has suspicion for pneumonia, repeated CXR and will heplock IV fluid.,cardiology consultation and initiate Lasix of 20mg IV x1 now. He does have a pacemaker, has a hx of AF, and home medication will be restarted as soon as possible. Discharge Summary Discharge Physical Examination Allergies: Coded Allergies: naproxen (Verified Allergy, Unknown, 04/15/21) Vitals & I&Os Vital Signs Date Time Temp Pulse Resp B/P (MAP) Pulse Ox O2 Delivery O2 Flow Rate FiO2 04/19/21 18:13 04/19/21 15:42 36.5 66 18 96 Room Air 04/19/21 09:00 3.00 04/17/21 07:45 96 General Appearance: Alert, Oriented X3, Cooperative Respiratory: Clear to Auscultation Cardiovascular: Regular Rate Psych/Mental Status: Mental Status NL Hospital Course Was the Problem List Reviewed?: Yes Nicholas Cristina is an 80yo male with a past medical history of frequent UTI with chronic indwelling catheter, 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 Patient was admitted to outside hospital 04/15 for severe abdominal pain and new-onset cough. Patient was found to meet 3/4 sepsis criteria (tachycardia, tachypnea and fever) and requiring 4L NC. UA positive for bacteria. Chest Xray was concerning for pneumonia. Patient was managed acutely with Rocephin and transferred to [facility] [place] for further management 04/16. On admission patient continued to be febrile with persistent abdominal pain. Admission findings were significant for lactic acidosis (2.54), and temperature 101.2. Blood cultures from 04/15 returned with Klebsiella resistant to ampicillin. Urine cultures returned with Klebsiella and E. Coli resistant to ampicillin, and MDR Morganella sensitive to amikacin, aztreonam, and ceftriaxone. Patient was managed with Zosyn (for 5 days). By 04/17 patient began feeling better. Abdominal pain was relieved with laxatives on 04/18. By 04/19 all of his symptoms had resolved. During admission, patient was also treated for acute hypoxic respiratory failure and exacerbation of heart failure. Patient was noted to be volume overload on exam and was requiring 4L NC. Patient was started on 20IV lasix on 04/15 and then transitioned to PSYCH NURSE torsemide. With diuresis and pneumonia management patient's symptoms improved. By 04/19 patient was breathing on room air. Patient was noted to be in atrial fibrillation on admission. Cardiology was consulted. Afib was managed with monitoring and resumption of PSYCH NURSE medications including carvedilol and eliquis. On 04/19 patient was feeling near his baseline and wanted to be discharged home. All questions and concerns were addressed. Patient was discharged with 5 day course of Augmentin for further UTI treatment. KATY JEAN Labs (last 24 hrs) Laboratory Tests 04/15/21 23:37: White Blood Count 10.6, Red Blood Count 3.64L, Hemoglobin 10.4L, Hematocrit 33L, Mean Corpuscular Volume 92, Mean Corpuscular Hemoglobin 29, Mean Corpuscular Hemoglobin Concent 31L, Red Cell Distribution Width 14.4, Platelet Count 194, Mean Platelet Volume 10.6, Immature Granulocyte % (Auto) 0, Neutrophils (%) (Auto) 90H, Lymphocytes (%) (Auto) 5L, Monocytes (%) (Auto) 4, Eosinophils (%) (Auto) 0, Basophils (%) (Auto) 1, Neutrophils # (Auto) 9.5H, Lymphocytes # (Auto) 0.5L, Monocytes # (Auto) 0.4, Eosinophils # (Auto) 0.0, Basophils # (Auto) 0.1, Immature Granulocyte # (Auto) 0.0, Neutrophils % (Manual) 87, Lymphocytes % (Manual) 5, Monocytes % (Manual) 4, Band Neutrophils 3, Atypical Lymphocytes 1, Sodium Level 137, Potassium Level 4.2, Chloride Level 104, Carbon Dioxide Level 20L, Anion Gap 13, Blood Urea Nitrogen 18, Creatinine 1.45H, Estimat Glomerular Filtration Rate 47, BUN/Creatinine Ratio 12, Glucose Level 395H, Lactic Acid Level 2.54*H, Calcium Level 9.0, Corrected Calcium 9.2, Total Bilirubin 0.8, Aspartate Amino Transf (AST/SGOT) 21, Alanine Aminotransferase (ALT/SGPT) 19, Alkaline Phosphatase 231H, Total Protein 7.6, Albumin 3.8 04/16/21 01:40: Lactic Acid Level 1.65 04/16/21 04:50: White Blood Count 7.5, Red Blood Count 3.38L, Hemoglobin 9.7L, Hematocrit 31L, Mean Corpuscular Volume 92, Mean Corpuscular Hemoglobin 29, Mean Corpuscular Hemoglobin Concent 31L, Red Cell Distribution Width 14.4, Platelet Count 164, Mean Platelet Volume 10.5, Immature Granulocyte % (Auto) 0, Neutrophils (%) (Auto) 85H, Lymphocytes (%) (Auto) 9L, Monocytes (%) (Auto) 6, Eosinophils (%) (Auto) 0, Basophils (%) (Auto) 0, Neutrophils # (Auto) 6.3, Lymphocytes # (Auto) 0.6L, Monocytes # (Auto) 0.4, Eosinophils # (Auto) 0.0, Basophils # (Auto) 0.0, Immature Granulocyte # (Auto) 0.0, Sodium Level 135, Potassium Level 4.2, Chloride Level 104, Carbon Dioxide Level 20L, Anion Gap 11, Blood Urea Nitrogen 17, Creatinine 1.42H, Estimat Glomerular Filtration Rate 48, BUN/Creatinine Ratio 12, Glucose Level 405*H, Calcium Level 8.6, Corrected Calcium 9.1, Total Bilirubin 0.7, Aspartate Amino Transf (AST/SGOT) 17, Alanine Aminotransferase (ALT/SGPT) 17, Alkaline Phosphatase 198H, Total Protein 6.9, Albumin 3.4, B-Type Natriuretic Peptide 339.1H 04/16/21 12:12: Glucometer 270H 04/16/21 15:29: Glucometer 194H 04/16/21 20:39: Glucometer 181H 04/17/21 00:27: Glucometer 196H 04/17/21 06:33: White Blood Count 8.0, Red Blood Count 3.32L, Hemoglobin 9.5L, Hematocrit 30L, Mean Corpuscular Volume 92, Mean Corpuscular Hemoglobin 29, Mean Corpuscular Hemoglobin Concent 31L, Red Cell Distribution Width 14.7H, Platelet Count 186, Mean Platelet Volume 10.2, Immature Granulocyte % (Auto) 0, Neutrophils (%) (Auto) 78H, Lymphocytes (%) (Auto) 11L, Monocytes (%) (Auto) 9, Eosinophils (%) (Auto) 1, Basophils (%) (Auto) 1, Neutrophils # (Auto) 6.2, Lymphocytes # (Auto) 0.9L, Monocytes # (Auto) 0.7, Eosinophils # (Auto) 0.1, Basophils # (Auto) 0.1, Immature Granulocyte # (Auto) 0.0, Sodium Level 137, Potassium Level 3.7, Chlori de Level 104, Carbon Dioxide Level 20L, Anion Gap 13, Blood Urea Nitrogen 14, Creatinine 1.25, Estimat Glomerular Filtration Rate 55, BUN/Creatinine Ratio 11, Glucose Level 248H, Calcium Level 8.5, Corrected Calcium 9.1, Total Bilirubin 0.9, Aspartate Amino Transf (AST/SGOT) 17, Alanine Aminotransferase (ALT/SGPT) 17, Alkaline Phosphatase 164H, Total Protein 6.8, Albumin 3.3 04/17/21 10:24: Glucometer 285H 04/17/21 15:40: Glucometer 177H 04/17/21 20:58: Glucometer 171H 04/18/21 04:56: Glucometer 225H 04/18/21 05:32: White Blood Count 5.9, Red Blood Count 3.23L, Hemoglobin 9.2L, Hematocrit 29L, Mean Corpuscular Volume 91, Mean Corpuscular Hemoglobin 29, Mean Corpuscular Hemoglobin Concent 31L, Red Cell Distribution Width 14.5, Platelet Count 177, Mean Platelet Volume 11.0, Immature Granulocyte % (Auto) 1, Neutrophils (%) (Auto) 74, Lymphocytes (%) (Auto) 15, Monocytes (%) (Auto) 8, Eosinophils (%) (Auto) 2, Basophils (%) (Auto) 1, Neutrophils # (Auto) 4.4, Lymphocytes # (Auto) 0.9L, Monocytes # (Auto) 0.5, Eosinophils # (Auto) 0.1, Basophils # (Auto) 0.0, Immature Granulocyte # (Auto) 0.0, Sodium Level 139, Potassium Level 3.5L, Chloride Level 106, Carbon Dioxide Level 21, Anion Gap 12, Blood Urea Nitrogen 16, Creatinine 1.28, Estimat Glomerular Filtration Rate 54, BUN/Creatinine Ratio 13, Glucose Level 229H, Calcium Level 8.6, Corrected Calcium 9.2, Total Bilirubin 0.7, Aspartate Amino Transf (AST/SGOT) 16, Alanine Aminotransferase (ALT/SGPT) 17, Alkaline Phosphatase 163H, Total Protein 6.8, Albumin 3.2 04/18/21 11:33: Glucometer 244H 04/18/21 15:32: Glucometer 155H 04/18/21 20:08: Glucometer 104 04/19/21 04:55: Glucometer 219H 04/19/21 07:07: White Blood Count 5.1, Red Blood Count 3.55L, Hemoglobin 10.0L, Hematocrit 32L, Mean Corpuscular Volume 90, Mean Corpuscular Hemoglobin 28, Mean Corpuscular Hemoglobin Concent 31L, Red Cell Distribution Width 14.5, Platelet Count 218, Mean Platelet Volume 10.8, Immature Granulocyte % (Auto) 0, Neutrophils (%) (Auto) 77H, Lymphocytes (%) (Auto) 13, Monocytes (%) (Auto) 6, Eosinophils (%) (Auto) 3, Basophils (%) (Auto) 1, Neutrophils # (Auto) 3.9, Lymphocytes # (Auto) 0.7L, Monocytes # (Auto) 0.3, Eosinophils # (Auto) 0.1, Basophils # (Auto) 0.1, Immature Granulocyte # (Auto) 0.0, Sodium Level 139, Potassium Level 3.3L, Chloride Level 104, Carbon Dioxide Level 21, Anion Gap 14, Blood Urea Nitrogen 15, Creatinine 1.27, Estimat Glomerular Filtration Rate 54, BUN/Creatinine Ratio 12, Glucose Level 264H, Calcium Level 8.9, Corrected Calcium 9.3, Total Bilirubin 0.6, Aspartate Amino Transf (AST/SGOT) 18, Alanine Aminotransferase (ALT/SGPT) 18, Alkaline Phosphatase 228H, Total Protein 7.5, Albumin 3.5 04/19/21 12:11: Glucometer 314H 04/19/21 15:44: Glucometer 292H Pending Labs Laboratory Tests 04/15/21 23:37: White Blood Count 10.6, Red Blood Count 3.64, Hemoglobin 10.4, Hematocrit 33, Mean Corpuscular Volume 92, Mean Corpuscular Hemoglobin 29, Mean Corpuscular Hemoglobin Concent 31, Red Cell Distribution Width 14.4, Platelet Count 194, Mean Platelet Volume 10.6, Immature Granulocyte % (Auto) 0, Neutrophils (%) (Auto) 90, Lymphocytes (%) (Auto) 5, Monocytes (%) (Auto) 4, Eosinophils (%) (Auto) 0, Basophils (%) (Auto) 1, Neutrophils # (Auto) 9.5, Lymphocytes # (Auto) 0.5, Monocytes # (Auto) 0.4, Eosinophils # (Auto) 0.0, Basophils # (Auto) 0.1, Immature Granulocyte # (Auto) 0.0, Neutrophils % (Manual) 87, Lymphocytes % (Manual) 5, Monocytes % (Manual) 4, Band Neutrophils 3, Atypical Lymphocytes 1, Sodium Level 137, Potassium Level 4.2, Chloride Level 104, Carbon Dioxide Level 20, Anion Gap 13, Blood Urea Nitrogen 18, Creatinine 1.45, Estimat Glomerular Filtration Rate 47, BUN/Creatinine Ratio 12, Glucose Level 395, Lactic Acid Level 2.54, Calcium Level 9.0, Corrected Calcium 9.2, Total Bilirubin 0.8, Aspartate Amino Transf (AST/SGOT) 21, Alanine Aminotransferase (ALT/SGPT) 19, Alkaline Phosphatase 231, Total Protein 7.6, Albumin 3.8 04/16/21 01:40: Lactic Acid Level 1.65 04/16/21 04:50: White Blood Count 7.5, Red Blood Count 3.38, Hemoglobin 9.7, Hematocrit 31, Mean Corpuscular Volume 92, Mean Corpuscular Hemoglobin 29, Mean Corpuscular Hemoglobin Concent 31, Red Cell Distribution Width 14.4, Platelet Count 164, Mean Platelet Volume 10.5, Immature Granulocyte % (Auto) 0, Neutrophils (%) ( Auto) 85, Lymphocytes (%) (Auto) 9, Monocytes (%) (Auto) 6, Eosinophils (%) (Auto) 0, Basophils (%) (Auto) 0, Neutrophils # (Auto) 6.3, Lymphocytes # (Auto) 0.6, Monocytes # (Auto) 0.4, Eosinophils # (Auto) 0.0, Basophils # (Auto) 0.0, Immature Granulocyte # (Auto) 0.0, Sodium Level 135, Potassium Level 4.2, Chloride Level 104, Carbon Dioxide Level 20, Anion Gap 11, Blood Urea Nitrogen 17, Creatinine 1.42, Estimat Glomerular Filtration Rate 48, BUN/Creatinine Ratio 12, Glucose Level 405, Calcium Level 8.6, Corrected Calcium 9.1, Total Bilirubin 0.7, Aspartate Amino Transf (AST/SGOT) 17, Alanine Aminotransferase (ALT/SGPT) 17, Alkaline Phosphatase 198, Total Protein 6.9, Albumin 3.4, B-Type Natriuretic Peptide 339.1 04/16/21 12:12: Glucometer 270 04/16/21 15:29: Glucometer 194 04/16/21 20:39: Glucometer 181 04/17/21 00:27: Glucometer 196 04/17/21 06:33: White Blood Count 8.0, Red Blood Count 3.32, Hemoglobin 9.5, Hematocrit 30, Mean Corpuscular Volume 92, Mean Corpuscular Hemoglobin 29, Mean Corpuscular Hemoglobin Concent 31, Red Cell Distribution Width 14.7, Platelet Count 186, Mean Platelet Volume 10.2, Immature Granulocyte % (Auto) 0, Neutrophils (%) (Auto) 78, Lymphocytes (%) (Auto) 11, Monocytes (%) (Auto) 9, Eosinophils (%) (Auto) 1, Basophils (%) (Auto) 1, Neutrophils # (Auto) 6.2, Lymphocytes # (Auto) 0.9, Monocytes # (Auto) 0.7, Eosinophils # (Auto) 0.1, Basophils # (Auto) 0.1, Immature Granulocyte # (Auto) 0.0, Sodium Level 137, Potassium Level 3.7, Chloride Level 104, Carbon Dioxide Level 20, Anion Gap 13, Blood Urea Nitrogen 14, Creatinine 1.25, Estimat Glomerular Filtration Rate 55, BUN/Creatinine Ratio 11, Glucose Level 248, Calcium Level 8.5, Corrected Calcium 9.1, Total Bilirubin 0.9, Aspartate Amino Transf (AST/SGOT) 17, Alanine Aminotransferase (ALT/SGPT) 17, Alkaline Phosphatase 164, Total Protein 6.8, Albumin 3.3 04/17/21 10:24: Glucometer 285 04/17/21 15:40: Glucometer 177 04/17/21 20:58: Glucometer 171 04/18/21 04:56: Glucometer 225 04/18/21 05:32: White Blood Count 5.9, Red Blood Count 3.23, Hemoglobin 9.2, Hematocrit 29, Mean Corpuscular Volume 91, Mean Corpuscular Hemoglobin 29, Mean Corpuscular Hemoglobin Concent 31, Red Cell Distribution Width 14.5, Platelet Count 177, Nimo n Platelet Volume 11.0, Immature Granulocyte % (Auto) 1, Neutrophils (%) (Auto) 74, Lymphocytes (%) (Auto) 15, Monocytes (%) (Auto) 8, Eosinophils (%) (Auto) 2, Basophils (%) (Auto) 1, Neutrophils # (Auto) 4.4, Lymphocytes # (Auto) 0.9, Monocytes # (Auto) 0.5, Eosinophils # (Auto) 0.1, Basophils # (Auto) 0.0, Immature Granulocyte # (Auto) 0.0, Sodium Level 139, Potassium Level 3.5, Chloride Level 106, Carbon Dioxide Level 21, Anion Gap 12, Blood Urea Nitrogen 16, Creatinine 1.28, Estimat Glomerular Filtration Rate 54, BUN/Creatinine Ratio 13, Glucose Level 229, Calcium Level 8.6, Corrected Calcium 9.2, Total Bilirubin 0.7, Aspartate Amino Transf (AST/SGOT) 16, Alanine Aminotransferase (ALT/SGPT) 17, Alkaline Phosphatase 163, Total Protein 6.8, Albumin 3.2 04/18/21 11:33: Glucometer 244 04/18/21 15:32: Glucometer 155 04/18/21 20:08: Glucometer 104 04/19/21 04:55: Glucometer 219 04/19/21 07:07: White Blood Count 5.1, Red Blood Count 3.55, Hemoglobin 10.0, Hematocrit 32, Mean Corpuscular Volume 90, Mean Corpuscular Hemoglobin 28, Mean Corpuscular Hemoglobin Concent 31, Red Cell Distribution Width 14.5, Platelet Count 218, Mean Platelet Volume 10.8, Immature Granulocyte % (Auto) 0, Neutrophils (%) (Auto) 77, Lymphocytes (%) (Auto) 13, Monocytes (%) (Auto) 6, Eosinophils (%) (Auto) 3, Basophils (%) (Auto) 1, Neutrophils # (Auto) 3.9, Lymphocytes # (Auto) 0.7, Monocytes # (Auto) 0.3, Eosinophils # (Auto) 0.1, Basophils # (Auto) 0.1, Immature Granulocyte # (Auto) 0.0, Sodium Level 139, Potassium Level 3.3, Chloride Level 104, Carbon Dioxide Level 21, Anion Gap 14, Blood Urea Nitrogen 15, Creatinine 1.27, Estimat Glomerular Filtration Rate 54, BUN/Creatinine Ratio 12, Glucose Level 264, Calcium Level 8.9, Corrected Calcium 9.3, Total Bilirubin 0.6, Aspartate Amino Transf (AST/SGOT) 18, Alanine Aminotransferase (ALT/SGPT) 18, Alkaline Phosphatase 228, Total Protein 7.5, Albumin 3.5 04/19/21 12:11: Glucometer 314 04/19/21 15:44: Glucometer 292 Discharge Home Medications: Active Scripts Active Augmentin 875-125 Tablet (Amoxicillin/Potassium Clav) 1 Each Tablet 1 Each PO BID Reported Xarelto (Rivaroxaban) 20 Mg Tablet 20 Mg PO DAILY Torsemide 100 Mg Tablet 50 Mg PO DAILY LAST FILLED 12-12-2020 #45/90 DAY SUPPLY TAKES OF A 100MG TAB Lovastatin 20 Mg Tablet 20 Mg PO HS Amlodipine Besylate 10 Mg Tablet 10 Mg PO DAILY Novolog (Insulin Aspart) 100 Unit/1 Ml Susp 8 Units SC AC Carvedilol 25 Mg Tablet 25 Mg PO BID Metformin HCl ER (Metformin HCl) 500 Mg Tab.er.24h 500 Mg PO DAILY Digoxin 125 Mcg Tablet 125 Mcg PO DAILY Glimepiride 4 Mg Tablet 4 Mg PO DAILY Losartan Potassium 25 Mg Tablet 25 Mg PO HS Hydrocodone-Acetamin 10-325 mg (Hydrocodone/Acetaminophen) 1 Each Tablet 1 Ea PO Q8H PRN Potassium Chloride 20 Meq Tab.er.prt 20 Meq PO DAILY Instructions to patient/family Please see electronic discharge instructions given to patient. ROSA ACEVEDO DO Apr 19, 2021 11:46
[2021-04-19 12:00] VITALS: BP 158/71
--- NOTE | 2021-04-19 12:22 | Progress Note ---
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 Patient was admitted to outside hospital 04/15 for severe abdominal pain and new-onset cough. Patient was found to meet 3/4 sepsis criteria (tachycardia, tachypnea and fever) and requiring 4L NC. UA positive for bacteria. Chest Xray was concerning for pneumonia. Patient was managed acutely with Rocephin and transferred to [facility] [place] for further management 04/16. On admission patient continued to be febrile with persistent abdominal pain. Admission findings were significant for lactic acidosis (2.54), and temperature 101.2. Blood cultures from 04/15 returned with Klebsiella resistant to ampicillin. Urine cultures returned with Klebsiella and E. Coli resistant to ampicillin, and MDR Morganella sensitive to amikacin, aztreonam, and ceftriaxone. Patient was managed with Zosyn (for 5 days). By 04/17 patient began feeling better. Abdominal pain was relieved with laxatives on 04/18. By 04/19 all of his symptoms had resolved. During admission, patient was also treated for acute hypoxic respiratory failure and exacerbation of heart failure. Patient was noted to be volume overload on exam and was requiring 4L NC. Patient was started on 20IV lasix on 04/15 and then transitioned to TUBULAR RIVETER torsemide. With diuresis and pneumonia management patient's symptoms improved. By 04/19 patient was breathing on room air. Patient was noted to be in atrial fibrillation on admission. Cardiology was consulted. Afib was managed with monitoring and resumption of TUBULAR RIVETER medications including carvedilol and eliquis. On 04/19 patient was feeling near his baseline and wanted to be discharged home. All questions and concerns were addressed. Patient was discharged with 5 day course of Augmentin for further UTI treatment. MARIELENA ACEVEDO DO 04/20/21 0553: Supervisory-Addendum Brief Verification & Attestation Participated in pt care: history, MDM, physical Personally performed: exam, history, MDM, supervision of care Care discussed with: Medical Student Procedures: n/a Results interpretation: Verified all documentation Verification and Attestation of Medical Student E/M Service A medical student performed and documented this service in my presence. I reviewed and verified all information documented by the medical student and made modifications to such information, when appropriate. I personally performed the physical exam and medical decision making. Marielena Acevedo, Apr 20, 2021,05:53 KATY JEAN Apr 19, 2021 12:22 MARIELENA ACEVEDO DO Apr 20, 2021 05:53
--- NOTE | 2021-04-19 14:11 | Occupational Ther Daily Note ---
OT Current Status-Daily Note Subjective pt reports possible d/c home later today ADL-Treatment Pt agreeable to get dressed for upcoming discharge home. He was able to thread BLE's into underwear/pants with use of cross over method and extra time. He stood to manage over hips with sup for safety; one hand on walker at all times. No lob or unsteadiness in standing. He donned socks/shoes with cross over method but then removed and re-donned non slip socks due to shoes having no traction on them. Min a to don R sock after effortful attempt. Shirt not donned at this time due to IV infusing. Pt observed to have SOB with exertion but able to recover quickly with rest breaks. Education provided on energy conservation strategies. Therapy Code Descriptions/Definitions Functional [place] Measure: 0=Not Assessed/NA 4=Minimal Assistance 1=Total Assistance 5=Supervision or Setup 2=Maximal Assistance 6=Modified [place] 3=Moderate Assistance 7=Complete IndependenceSCALE: Activities may be completed with or without assistive devices. 0-Ievbezzbar-zfdheej completes the activity by him/herself with no assistance from a helper. 5-Set-up or Clean-up Assistance-helper sets up or cleans up; patient completes activity. Catron assists only prior to or following the activity. 4-Supervision or Touching Assistance-helper provides verbal cues and/or touching/steadying and/or contact guard assistance as patient completes activity. Assistance may be provided throughout the activity or intermittently. 3-Partial/Moderate Assistance-helper does LESS THAN HALF the effort. Catron lifts, holds or supports trunk or limbs, but provides less than half the effort. 2-Substantial/Maximal Assistance-helper does MORE THAN HALF the effort. Catron lifts or holds trunk or limbs and provides more than half the effort. 5-Rjtipymxy-kvxlsc does ALL the effort. Patient does none of the effort to complete the activity. Or, the assistance of 2 or more helpers is required for the patient to complete the activity. If activity was not attempted, code reason: 7-Patient Refused. 9-Not Applicable-not attempted and the patient did not perform the activity before the current illness, exacerbation or injury. 10-Not Attempted due to Environmental Limitations-(lack of equipment, weather restraints, etc.). 88-Not Attempted due to Medical Conditions or Safety Concerns. Lower Body Dressing (QC): 4 (supervision) On/Off Footwear: 3 (Min a to don R sock over toes. pt able to insole tack puller hand heel. ) Education OT Patient Education: Energy conservation, Modified ADL techniques, Progress t oward Goal/Update tx plan, Purpose of tx/functional activities Teaching Recipient: Patient Teaching Methods: Discussion Response to Teaching: Verbalize Understanding, Return Demonstration, R einforcement Needed OT Short Term Goals Short Term Goals Oral hygiene: 5 Toileting hygiene: 4 Shower/bathe self: 3 Upper body dressin Lower body dressin Putting on/taking off footwear: 4 OT Operations Leader Goals Operations Leader Goals Toileting Hygiene (QC): 4 Shower/Bathe Self (QC): 4 Upper Body Dressing (QC): 5 Lower Body Dressing (QC): 4 On/Off Footwear (QC): 5 1=Demonstrate adherence to instructed precautions during ADL tasks. 2=Patient will verbalize/demonstrate understanding of assistive devices/modifications for ADL. 3=Patient will improve strength/tolerance for activity to enable patient to perform ADL's. OT Education/Plan Problem List/Assessment Assessment: Decreased Activ Tolerance, Decreased Safety Aware, Impaired Self- Care Skills Discharge Recommendations Plan/Recommendations: Continue POC Therapy Discharge Recommendati: Home & Family Comment Home with home health therapy Treatment Plan/Plan of Care Treatment,Training & Education: Yes Patient would benefit from OT for education, treatment and training to promote independence in ADL's, mobility, safety and/or upper extremity function for ADL's. Plan of Care: ADL Retraining, Functional Mobility, UE Funct Exercise/Act Treatment Duration: Apr 22, 2021 Frequency: 5 times per week Estimated Hrs Per Day: .25 hour per day Agreement: Yes Rehab Potential: Fair Time/GCodes Start Time: 13:42 Stop Time: 13:54 Total Time Billed (hr/min): 12 Billed Treatment Time 1, Miri Reynoso OT Apr 19, 2021 14:10
[2021-04-19 15:42] VITALS: BP 169/74
[2021-04-19] MEDS: ACETAMINOPHEN 325 MG TABLET PO PRN (16:16)
--- NOTE | 2021-04-28 22:05 | Physician Query Clarification ---
PQ-Link Manifestation-Etiology Admission/Discharge Admission Date: Apr 15, 2021 at 23:29 Discharge Date: Apr 19, 2021 at 18:10 ROSA Solo DO The medical record reflects the following clinical scenario: History/Risk Factors: [list no more than 2] Clinical Findings: [list no more than 2] Treatment: [list no more than 2] Question: Can you specify if the [manifestation] is due to/associated with [ etiology]? Please document a response in the Progress Note or Discharge Summary. 1. Yes - [Manifestation] is due to/associated with [etiology]. 2. No - [Manifestation] is not due to/associated with [etiology]. 3. Other, with explanation of the clinical findings. 4. Clinically undetermined, no explanation for the clinical findings. Please remember a lack of response to the above will prompt a phone page by [facility] staff. In responding to this query, please exercise your independent professional judgment. The purpose of this communication is to more accurately reflect the complexity of your patients condition. The fact that a question is asked does not imply that any particular answer is desired or expected. Thank you for your timely response to this clarification. Requestors name: [ ] Phone # [ ] THIS PHYSICIAN QUERY FORM IS A PERMANENT PART OF THE MEDICAL RECORD CHENG,SANTANA Apr 28, 2021 22:05
--- NOTE | 2021-04-28 22:34 | Physician Query Clarification ---
PQ-Link Manifestation-Etiology Admission/Discharge Admission Date: Apr 15, 2021 at 23:29 Discharge Date: Apr 19, 2021 at 18:10 ROSA Solo DO The medical record reflects the following clinical scenario: History/Risk Factors: 80 y/o male patient with history of UTI had indwelling catheter admitted for sepsis management. Hand P, 04/15: Sepsis, frequent UTI in the setting of indwelling catheter, pneumonia, acute respiratory failure with hypoxia. Progress notes, 04/18: Sepsis, frequent UTI in the setting of indwelling catheter, pneumonia, acute respiratory failure with hypoxia, chronic indwelling catheter present continue to use wilson. Surgical progress notes, 04/19: UTI, sepsis, pneumonia, hyperglycemia. Clinical Findings: Abdominal pain and cough, pulse 94, HR-106, RR-24, T-101.2, lactic acid 2.7. Treatment: Rocephin, Zosyn IV. Question: Can you specify if the UTI is due to/associated with indwelling catheter? Please document a response in the Progress Note or Discharge Summary. 1. Yes - UTI is due to/associated with indwelling catheter. 2. No - UTI is not due to/associated with indwelling catheter. 3. Other, with explanation of the clinical findings. 4. Clinically undetermined, no explanation for the clinical findings. PHYSICIAN RESPONSE Manifestation due to/assoic: Yes Please remember a lack of response to the above will prompt a phone page by [facility] staff. In responding to this query, please exercise your independent professional judgment. The purpose of this communication is to more accurately reflect the complexity of your patients condition. The fact that a question is asked does not imply that any particular answer is desired or expected. Thank you for your timely response to this clarification. Requestors name: [ ] Phone # [ ] THIS PHYSICIAN QUERY FORM IS A PERMANENT PART OF THE MEDICAL RECORD SANTANA ANAND Apr 28, 2021 22:34 ROSA ACEVEDO DO Apr 29, 2021 05:18
--- NOTE | 2021-04-29 20:59 | Physician Query Clarification ---
PQ-Further Specificity Admission/Discharge Admission Date: Apr 15, 2021 at 23:29 Discharge Date: Apr 19, 2021 at 18:10 ROSA Solo DO The medical record reflects the following clinical scenario: History/Risk Factors: 80 y/o male patient with history of frequent UTI and had indwelling catheter presented with severe abdominal apin and cough found to have meet sepsis creteria and admitted for further management. Hand P, 04/15: Sepsis, pneumonia, UTI in the setting of chronic indwelling catheter. Progress notes, 04/17: Sepsis, pneumonia, UTI in the setting of chronic indwelling catheter, acute respiratory failure with hypoxia. Clinical Findings: chest X-ray consist with pneumonia, Abdominal pain and cough, pulse 94, HR-106, RR-24, T-101.2, lactic acid 2.7. Treatment: Rocephin, Zosyn IV Question: Can you further specify sepsis per the clinical indicators above? Please document a response in the Progress Notes or Discharge Summary. 1. Sepsis due to UTI. 2. Sepsis due to pneumonia. 3. Other, with explanation of the clinical findings. 4. Clinically undetermined, no explanation for the clinical findings. PHYSICIAN RESPONSE Can you specify per above: 2 Please remember a lack of response to the above will prompt a phone page by [facility] staff. In responding to this query, please exercise your independent professional judgment. The purpose of this communication is to more accurately reflect the complexity of your patients condition. The fact that a question is asked does not imply that any particular answer is desired or expected. Thank you for your timely response to this clarification. Requestors name: [ ] Phone # [ ] THIS PHYSICIAN QUERY FORM IS A PERMANENT PART OF THE MEDICAL RECORD SANTANA ANAND Apr 29, 2021 20:59 ROSA ACEVEDO DO Apr 30, 2021 05:43
== END 2021-04-19 18:10 | disposition home health service (06) | DRG 871 ==
LOC: CSD 23:29 → 4TH 04-17 14:08
PROVIDERS: ADMIT Internal Medicine; ATTEND Internal Medicine
DX: A41.9 Sepsis, unspecified organism (principal); J18.9 Pneumonia, unspecified organism; T83.518A Infection and inflammatory reaction due to other urinary catheter, initial encounter; N39.0 Urinary tract infection, site not specified; Z87.891 Personal history of nicotine dependence; Z95.1 Presence of aortocoronary bypass graft; I25.10 Atherosclerotic heart disease of native coronary artery without angina pectoris; I25.2 Old myocardial infarction; K21.9 Gastro-esophageal reflux disease without esophagitis; Z79.4 Long term (current) use of insulin; Z79.899 Other long term (current) drug therapy; I50.9 Heart failure, unspecified; E87.70 Fluid overload, unspecified; E11.9 Type 2 diabetes mellitus without complications; E11.65 Type 2 diabetes mellitus with hyperglycemia; I48.0 Paroxysmal atrial fibrillation; I11.0 Hypertensive heart disease with heart failure; E78.5 Hyperlipidemia, unspecified; Z95.0 Presence of cardiac pacemaker
CPT/HCPCS: 36415; 74022; 80053; 82947; 83605; 83880; 85007; 85025; 85027; 93306; 94640; 94664; 94760